=== PATIENT | male | born 1960 | race Caucasian/White ===

== ENCOUNTER 2017-07-20 17:46 | Inpatient (IN) | payer MEDICARE ==
[2017-07-20] MEDS ORDERED: HYDROCODONE-APA1 TAB PO (18:11)
[2017-07-20 18:53] LABS: BASOPHILS 0.6 % (0-2); EOSINOPHILS 6.1 % (0-7); HEMATOCRIT 38.5 % (42.0-54.0); HEMOGLOBIN 12.4 g/dL (13.5-17.5); IMMATURE GRANULOCYTES 0.4 % (0-5); LYMPHOCYTES 14.7 % (15-50); MCH 30.2 pg (26.0-34.0); MCHC 32.2 g/dL (31.0-37.0); MCV 93.7 fL (80.0-100.0); MEAN PLATELET VOLUME 11.6 fL (7.4-10.4); MONOCYTES 9.3 % (2-11); NEUTROPHILS 68.9 % (40-80); RBC 4.11 10x6/uL (4.20-6.10); RDW 17.7 % (11.5-14.5); WBC 5.1 10x3/uL (4.8-10.8)
[2017-07-20 18:55] LABS: PLATELET COUNT 119 10x3/uL (130-400)
[2017-07-20 19:05] LABS: INR 1.09 (0.85-1.17)
[2017-07-20 19:17] LABS: ANION GAP 14.1 mmol/L (8-16); CALCIUM 8.5 mg/dL (8.5-10.1); CARBON DIOXIDE 26.4 mmol/L (21.0-32.0); CREATININE - SERUM 5.2 mg/dL (0.6-1.3); POTASSIUM - SERUM 4.5 mmol/L (3.5-5.1)
--- NOTE | 2017-07-20 19:25 | NUR ---
SITTING ON SIDE OF BED TALKING ON PHONE. ALERT/ORIENTED X 4. DENIES PAIN OR ANY NEEDS.
[2017-07-20 20:48] VITALS: BP 144/73
--- NOTE | 2017-07-20 22:07 | NUR ---
PATIENT CAME TO NURSES'S STATION IN WHEELCHAIR REQUESTING PAIN MEDICATION. OBTAIN ORDER FROM [facility] TO GIVE HYDROCODONE 10/325 MG PO Q6H PRN FOR PAIN.
[2017-07-21] VITALS: BP 129/39
[2017-07-21 00:17] VITALS: BP 159/69; BMI 29.2
--- NOTE | 2017-07-21 07:15 | NUR ---
RECIEVED REPORT ON PATIENT, PATIENT IS ALERT AND ORIENTED AT THIS TIME. NAD NOTED AT THIS TIME. PATIENT DENIES ANY NEEDS OR PAIN AT THIS TIME. BED IS LOW AND LOCKED, CALL LIGHT IN REACH. WILL CONT TO MONITOR PATIENT. CPOC.
[2017-07-21 08:00] VITALS: BP 130/41
--- NOTE | 2017-07-21 08:00 | NUR ---
MORNING ASSESSMENT DONE. PATIENT DENIES ANY NEEDS. CPOC
--- NOTE | 2017-07-21 09:30 | NUR ---
PATIENT GONE TO DIALYSIS. CPOC
--- NOTE | 2017-07-21 14:32 | NUR ---
PATIENT BACK FROM DIAYLSI, PATIENT SITTING IN ELECTRIC WHEELCHAIR, C/O PAIN 05/02 IN BACK. NORCO GIVEN. DENIES ANY OTHER NEEDS. CPOC
[2017-07-21 16:23] VITALS: BP 120/27
--- NOTE | 2017-07-21 17:36 | NUR ---
PATIENT SITTING UP IN BED. DENIES ANY NEEDS AT THIS TIME. CPOC
--- NOTE | 2017-07-21 18:32 | NUR ---
WENT IN TO START IV ON PATIENT, AND PATIENT REFUSED STATED HE WOULD RATHER WAIT UNTIL LATER, OR IN THE MORNING BEFORE SURGERY. WILL PASS ON TO MECHANICAL OXIDIZER
--- NOTE | 2017-07-21 19:17 | NUR ---
PT IN BED. PROVIDED COLA PER REQUEST. DENIES FURTHER NEEDS. WILL CONTINUE TO MONITOR.
[2017-07-21 20:00] VITALS: BP 106/38
[2017-07-22] VITALS: BP 100/38
[2017-07-22 04:00] VITALS: BP 134/470
[2017-07-22 04:31] LABS: BASOPHILS 0.2 % (0-2); EOSINOPHILS 5.9 % (0-7); HEMATOCRIT 36.3 % (42.0-54.0); HEMOGLOBIN 11.5 g/dL (13.5-17.5); IMMATURE GRANULOCYTES 0.2 % (0-5); LYMPHOCYTES 26.5 % (15-50); MCH 29.8 pg (26.0-34.0); MCHC 31.7 g/dL (31.0-37.0); MEAN PLATELET VOLUME 11.7 fL (7.4-10.4); MONOCYTES 9.6 % (2-11); NEUTROPHILS 57.6 % (40-80); PLATELET COUNT 110 10x3/uL (130-400); RBC 3.86 10x6/uL (4.20-6.10); RDW 17.6 % (11.5-14.5); WBC 4.9 10x3/uL (4.8-10.8)
[2017-07-22 04:48] LABS: INR 1.09 (0.85-1.17); PROTIME 13.9 SECONDS (11.6-15.0)
[2017-07-22 04:55] LABS: CALCIUM 8.8 mg/dL (8.5-10.1); CARBON DIOXIDE 27.1 mmol/L (21.0-32.0); CREATININE - SERUM 4.8 mg/dL (0.6-1.3); PHOSPHOROUS 6.9 mg/dL (2.5-4.9); POTASSIUM - SERUM 4.1 mmol/L (3.5-5.1)
--- NOTE | 2017-07-22 07:30 | NUR ---
REPORT RECIVED. PT NOT IN ROOM. WILL ASSESS WHEN PT RETURNS TO ROOM.
[2017-07-22 08:22] VITALS: BP 127/34
--- NOTE | 2017-07-22 08:31 | NUR ---
20 G IV INSERTED INTO RIGHT AC X1 STICK. PT RESTING QUIETLY, RR EVEN AND UNLABORED.
--- NOTE | 2017-07-22 10:30 | NUR ---
SPOKE TO PT AND FAMILY REGARDING SURGERY AND CARE. FAMILY MEMBER APPEARS TO BE IRRIATED SAYING "WELL NO ONE HAS SPOKE TO US" AND "NO ONE HAS BEEN IN HERE." EXPLAINED TO FAMILY THAT I HAD BEEN IN THE ROOM SEVERAL TIMES PRIOR TO THEM ARRIVING. EXPLAINED A LITTLE BIT ABOUT PROCEDURE, WENT OVER CONSENTS WITH FAMLILY, EVEN THOUGH THEY HAD ALREADY BEEN SIGNED BY THE PATIENT. WILL CTM.
[2017-07-22 11:48] VITALS: BP 130/55
--- NOTE | 2017-07-22 13:00 | NUR ---
PRE-OP CALLED AND COMPLETED. PT DENIES QUESTIONS RELATED TO PROCEDURE. RR EVEN AND UNLABORED, TO BE TRANSFERRED TO OR.
--- NOTE | 2017-07-22 18:30 | NUR ---
PT RECIEVED TO ROOM FROM SURGERY. RR EVEN AND UNLABORED, PT ON 3L NC. DRESSING ON RIGHT UPPER ARM CDI. VSS. PTS HOB IS AT 20 DEGREES DUE TO HYPOTENSIVE EPISODES IN PACU. PT ON FREQUENT VS, WILL GIVE REPORT ON PT CONDITION FOR THE DAY.
[2017-07-22 18:32] VITALS: BP 129/42
[2017-07-22 19:00] VITALS: BP 112/22
--- NOTE | 2017-07-22 19:03 | NUR ---
SPOKE TO PTS REGARDING PT STATUS AFTER SURGERY. FAMILY SAID "THANK YOU SO MUCH FOR CALLING." VERBALIZED UNDERSTANDING REGARDING PT STATUS.
--- NOTE | 2017-07-22 19:27 | NUR ---
PT SITTING UP IN BED. PT IS SLIGHTLY LETHARGIC POST SURGERY. PROVIDED WATER PER REQUEST. DENIES FURTHER NEEDS AT THIS TIME. WILL CONTINUE TO MONITOR.
[2017-07-23] VITALS: BP 121/42
[2017-07-23 04:00] VITALS: BP 106/27
[2017-07-23 04:41] LABS: BASOPHILS 0.3 % (0-2); EOSINOPHILS 3.1 % (0-7); HEMATOCRIT 35.9 % (42.0-54.0); HEMOGLOBIN 11.2 g/dL (13.5-17.5); IMMATURE GRANULOCYTES 0.3 % (0-5); LYMPHOCYTES 14.1 % (15-50); MCH 29.4 pg (26.0-34.0); MCHC 31.2 g/dL (31.0-37.0); MCV 94.2 fL (80.0-100.0); MEAN PLATELET VOLUME 12.5 fL (7.4-10.4); NEUTROPHILS 73.2 % (40-80); PLATELET COUNT 107 10x3/uL (130-400); RBC 3.81 10x6/uL (4.20-6.10); RDW 17.4 % (11.5-14.5); WBC 5.9 10x3/uL (4.8-10.8)
[2017-07-23 05:09] LABS: ANION GAP 19.6 mmol/L (8-16); CALCIUM 8.1 mg/dL (8.5-10.1); CARBON DIOXIDE 22.7 mmol/L (21.0-32.0); CREATININE - SERUM 5.7 mg/dL (0.6-1.3); PHOSPHOROUS 8.5 mg/dL (2.5-4.9); POTASSIUM - SERUM 4.3 mmol/L (3.5-5.1)
--- NOTE | 2017-07-23 07:30 | NUR ---
REP0RT RECIEVED. RR EVEN AND UNLABORED, PT ON PHONE. PLACED NAME ON WHITE BOARD. WILL ASSESS AFTER PT IS OFF OF PHONE. WILL CTM.
[2017-07-23 08:00] VITALS: BP 136/40
--- NOTE | 2017-07-23 13:58 | NUR ---
PT BACK FROM DIALYSIS WITH DIALYSIS NURSE. RR EVEN AND UNLABORED, PT DENIES NEEDS. DISCUSSED D/C AND PT SAID HIS BROTHER CAN COME PICK HIM UP TODAY. WILL COMPLETE D/C AND CTM.
--- NOTE | 2017-07-23 15:00 | NUR ---
PT DISCARHGED. PT ALREADY REMOVED IV FROM ARM. PT VERY INPATIENT WAITING FOR D/C PAPER WORK. WENT OVER PAPERWORK WITH PT AND FAMILY MEMBER. PT WILL BE LEAVING WITH BROTHER AND GOING HOME IN HIS PERSONAL VEHICHLE. PT DENIES QUESTIOSN REGARDING DISCHARGE. PT LEFT VIA WHEELCHAIR.
--- NOTE | 2017-07-28 10:26 | OP ---
PATIENT NAME: UZIEL CORRALES MEDICAL RECORD: [id number] :60 LOCATION:D.M2 D.2105 ADMISSION DATE:07/20/17 SURGEON: SCOT ZAVALA MD DATE OF OPERATION: 07/22/2017 PREOPERATIVE DIAGNOSIS: Leaking or perforated ulcerated arteriovenous fistula, left arm. ADDITIONAL DIAGNOSES: End-stage renal disease and dependence on hemodialysis, insulin-dependent diabetes and peripheral atherosclerotic arterial disease. OPERATION PERFORMED: Ligation of left arm arteriovenous fistula and the implantation of left brachial artery to axillary vein Acuseal PTFE AV graft. SURGEON: Scot Zavala MD ANESTHESIA: Regional block plus general anesthetic with LMA per SPEEDBOAT OPERATOR. PREOPERATIVE NOTE: Mr. Corrales is a 56-year-old diabetic patient from [place], patient of Dr. Cox. He has been dialyzing quite successfully with the left arm brachial artery to translocated basilic vein AV fistula although he has had interventions in the past. He presented earlier this week with a scab over an aneurysmal site in his fistula and a history of a sentinel bleeding or prolonged bleeding following decannulation from that site. This was apparent immediately that was impending rupture. I did do an angiogram on him last Tuesday at [facility] and did not find any venous outflow obstructions, although he does have a somewhat oversized and severely fractured stent in the upper basilic vein. There was no pseudoaneurysm or evidence of active bleeding. There was irregularity of the arterial or Juxta-anastomotic segment. He was admitted to the hospital, but due to scheduling, he was not able to go to the operating room for surgery on the , but is brought to the operating room today on the for surgery to see if we can perhaps salvage this fistula or replace it. DESCRIPTION OF PROCEDURE: Under anesthesia in supine position, the patient was prepped and draped in a sterile manner. The area of scab had increased in size and it was very apparent that this was an area of full thickness necrosis and I decided at that point that we would bypass it and ligate it. I made a vertical incision over the arterial limb of the fistula just above the antecubital space and exposed the brachial artery anastomosis. During this dissection, I just inadvertently brushed over the fistula and not the scab loose uncovering a full thickness defect about 1/8th of an inch or slightly larger in diameter which bled quite profusely for a very brief period of time until digital pressure was applied. I subsequently oversewed the leak with 3-0 Vicryl. I chose a 6-mm Acuseal graft. I used a partially occluding clamp to occlude the brachial artery just below the anastomosis. I ligated the fistula proximally with a 0 Vicryl and transected it. It was trimmed back close to the anastomosis where there was a satisfactory lumen and it was spatulated and anastomosed end-to-end to the end of the 6 mm diameter spatulated Acuseal graft. The graft was then placed in a subcutaneous tunnel. The graft and artery were flushed with heparinized saline. Vertically oriented incision was then made just distal to the axilla, and the basilic vein with the fractured stent within it and the axillary vein were exposed. The vein proximal to the area of stenting was very suitable for anastomosis. The vessel was initially controlled with Silastic loops and then as needed with vascular clamps. The Acuseal graft was then OPERATIVE REPORT [id number] UZIEL CORRALES placed in a subcutaneous tunnel as close as possible to the overlying skin to facilitate access. It was flushed repeatedly with heparinized saline and the patient was given 3000 units of heparin systemically. The graft was shortened, beveled, and anastomosed end-to-side to the axillary vein with running 6-0 Prolene. With completion of the anastomosis and release of the occluding clamps, excellent flow was established. The wounds were irrigated with Ancef/gentamicin solution, infiltrated with 0.25% Marcaine with epinephrine. The patient's heparin was partially reversed with 10 mg of protamine given intravenously by the physician/internist and the wounds were closed without the use of a drain approximating subcutaneous tissues with interrupted inverted 3-0 Vicryl and skin with running intracuticular 4-0 Monocryl. The ruptured aneurysmal area was again reexamined. The sutures were removed and I quickly found that there was still venous inflow to this area, which had not been ligated. This was easily controlled with direct pressure. The perforation itself was then excised and the underlying aneurysmal wall which was fused to the overlying skin was sutured closed with a running 4-0 Prolene suture. All the wounds were sealed with Dermabond glue and dressed with Maxorb Ag, Tegaderm, and Cavilon skin prep and some additional gauze padding and Coban elastic wrap was applied to hold pressure over the aneurysmal area. The graft was functioning well by Doppler with a palpable pulse and thrill and there was excellent pulsatile Doppler polyphasic flow in the distal radial and ulnar arteries at the wrist. Blood loss during the operation was about 50 cc, none was replaced intraoperatively. All sponges, instruments and needles were accounted for. No drain was used and no surgical specimen was submitted for histopathology. PLAN: The patient will remain in the hospital overnight tonight. Hopefully, he will have dialysis here in the hospital via his new Acuseal graft tomorrow and perhaps on Tuesday. He can be discharged to go home to [place] whenever we feel that the graft is functioning and likely to provide a reliable dialysis access. I have not inserted a dialysis catheter. I believe it is critically important that we adhere to Acuseal protocol with the nurses using sterile gloves when they access and decannulate the graft, only 17-gauge needle should be used and flow should not exceed 450 cc per minute for the first 2 weeks. I would consider that 2 weeks after discharge from the hospital. I would like to have him back in my office in about 2 weeks for wound check and suture removal, etc., and I believe that he should have a followup angiogram at [facility] done in 6-8 weeks. I am somewhat concerned about the arterial anastomosis and JA segment which was rather tortuous and of course of the venous anastomosis is a potential site for neointimal hyperplasia, etc. TRANSINT:[id number] Voice Confirmation ID: [id number] DOCUMENT ID: [id number] SCOT ZAVALA MD at 1026 CC: STEVE COX MD [id number] DICTATION DATE: 07/22/171801 PLEXIGLAS FORMER: 07/22/17 7363 DIS IN 07/23/17 [facility] [address] [facility] [place] [address]
== END 2017-07-23 15:03 | disposition home or self-care (01) | DRG 252 ==
LOC: D.M2 17:46
PROVIDERS: Surgery; ADMIT Internal Medicine Nephrology
PROC: 5A1D60Z (ICD-10-PCS; principal; 2017-07-21)
PROC: 03LY0ZZ Occlusion of Upper Artery, Open Approach (ICD-10-PCS; 2017-07-22)
PROC: 5A09457 Assistance with Respiratory Ventilation, 24-96 Consecutive Hours, Continuous Positive Airway Pressure (ICD-10-PCS; 2017-07-22 11:30)
DX: T82.898A Other specified complication of vascular prosthetic devices, implants and grafts, initial encounter (principal); N18.6 End stage renal disease; I12.0 Hypertensive chronic kidney disease with stage 5 chronic kidney disease or end stage renal disease; J81.1 Chronic pulmonary edema; Y83.8 Other surgical procedures as the cause of abnormal reaction of the patient, or of later complication, without mention of misadventure at the time of the procedure; E11.22 Type 2 diabetes mellitus with diabetic chronic kidney disease; Z99.2 Dependence on renal dialysis; E11.40 Type 2 diabetes mellitus with diabetic neuropathy, unspecified; I25.10 Atherosclerotic heart disease of native coronary artery without angina pectoris; I73.9 Peripheral vascular disease, unspecified; E83.39 Other disorders of phosphorus metabolism; D63.1 Anemia in chronic kidney disease; Z72.0 Tobacco use; Z95.5 Presence of coronary angioplasty implant and graft

== ENCOUNTER 2018-05-29 21:40 | Inpatient (IN) | payer MEDICARE ==
[~2018-05-29] VITALS: Ht 177.8 cm; Wt 103.2 kg
--- NOTE | ~2018-05-29 | OP ---
PATIENT NAME: UZIEL CORRALES MEDICAL RECORD: [id number] :60 LOCATION:D.M2 D.2112 ADMISSION DATE:05/29/18 SURGEON: SCOT ZAVALA MD DATE OF OPERATION: 06/01/2018 SURGEON: Scot Zavala MD REFERRING PHYSICIAN: Dr. Gomez. ANESTHESIA: General by LMA converted to GETA by JUSTIN and Dr. Valente. PROCEDURE: Excision of infected AV graft including cuff of axillary vein and arterial anastomosis with the brachial artery repair with an end-to-end reversed autogenous left greater saphenous vein interposition graft and application of a wound VAC. PREOPERATIVE DIAGNOSES: Infected thrombosed AV graft, ESRD dependence on hemodialysis, sepsis severe, atherosclerotic peripheral arterial disease, and possible Buerger's disease with tobacco addiction. PREOPERATIVE NOTE: Mr. 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 He is on chronic hemodialysis and had been dialyzing with a left arm AV graft, which is now thrombosed and appears infected. Under general anesthesia, the patient was positioned on the operating table in supine position, prepped and draped in sterile manner. An incision was made over the upper arm to expose the anastomosis of the graft to the brachial artery and to the axillary vein. The axillary vein to graft anastomosis was excised and the vein ligated with Vicryl. The brachial artery was difficult to free from the surrounding scar and I ended up removing about an inch and a half of artery along with the arterial anastomosis to the infected graft. I then took vein from the left thigh and reversed it and used it as an interposition graft, sutured end-to-end to the brachial artery. This was done with 6-0 Prolene after flushing the vessels with heparinized saline. The thigh was closed with Vicryl suture and skin lona. The flow in the brachial artery after this reconstruction was satisfactory by Doppler in the upper arm and at the level of the antecubital space and in the radial and ulnar arteries at the wrist. The rest of the infected graft was removed through a generous incision. Hemostasis was obtained with electrocautery. Wound VAC dressings were applied to all, but the incision over the vascular structures, which was closed with interrupted Vicryl. The incision was dressed with Maxorb Ag, Tegaderm, and Cavilon skin prep. The patient will need to continue on dialysis with a catheter. He presently has a tunneled dialysis catheter in the left groin. This will need to be preferably changed out before he is discharged. Blood loss was estimated at 200 cc. None was replaced. No drain was used. The patient was hypotensive during the operation requiring pressors and so will be managed postop in the ICU. OPERATIVE REPORT [id number] UZIEL CORRALES TRANSINT:[id number] Voice Confirmation ID: [id number] DOCUMENT ID: [id number] SCOT ZAVALA MD at 1054 CC: [id number] DICTATION DATE: 06/22/18 1418 PRINTED CIRCUIT BOARD DRAFTER: 06/22/18 1433 ADM IN [facility] [address] [place] [address]
--- NOTE | ~2018-05-29 | PN ---
PATIENT:UZIEL CHOW MEDICAL RECORD: [id number] LOCATION:D.M2 D.211 ADMISSION DATE: 05/29/18 PROGRESS NOTE DATE OF SERVICE: 06/15/2018 SUBJECTIVE: This is a 57-year-old man who has had a history of end-stage renal disease, has been on dialysis. The patient had fever and chills and was noted to have infected dialysis port. There was also some ischemia on the right second finger. The patient was admitted to the hospital, had surgery with removal of the port as well as debridement and VAC placement. The patient has done well. He was also noted to have basilar pneumonia. The patient's cultures showed MRSA and has been treated with vancomycin. The patient did well, was transferred to the medical floor. He has had dialysis and last 2 days had been vomiting. He complains of abdominal pain. PHYSICAL EXAMINATION: GENERAL: Reveals a middle-aged man, who appears to be acutely ill. VITAL SIGNS: Temperature 97.9, heart rate of 93, respiratory rate of 18, blood pressure 132/58. HEENT: The patient is normocephalic. Pupils are equal and reactive. NECK: Supple. There is no adenopathy. Trachea is midline. There is no thyromegaly. CHEST: Clear, symmetric. No wheezes or crackles. HEART: Shows no jugular venous distention. No murmur or gallop. ABDOMEN: Benign. Abdominal exam shows some mid abdomen tenderness with no rebound or guarding. EXTREMITIES: No clubbing, cyanosis or edema. LABORATORY DATA: White count of 4.5, hemoglobin 8.8. Platelet count is 104,000. Chemistries remarkable for sodium 128, potassium 3.5, creatinine is 3.5. BUN is 26. ASSESSMENT: 1. Basilar pneumonia, improving on antibiotics. 2. Infected dialysis port. This has been removed with VAC. 3. Abdominal pain, nausea and vomiting, this is unclear. The patient has tenderness, but no distention. We will order a KUB initially and PCP can subsequently take care of the problem there is. TRANSINT:[id number] Voice Confirmation ID: [id number] DOCUMENT ID: [id number] JONY SAHU at 1126 CC: [id number] DICTATION DATE: 06/15/18 3331 PRINTED CIRCUIT BOARDS INSPECTOR: 06/16/18 0158 ADM IN [facility] [address] [place] [id number]
--- NOTE | ~2018-05-29 | PN ---
PATIENT:UZIEL CHOW MEDICAL RECORD: [id number] LOCATION:D.M2 D.211 ADMISSION DATE: 05/29/18 PROGRESS NOTE DATE OF SERVICE: 06/18/2018 SUBJECTIVE: This 57-year-old man who has had a history of end-stage renal disease, on dialysis. The patient was admitted with fever and chills with infected dialysis port. The patient was taken to surgery. Dialysis port was taken out, washed and vacuum was started. The patient was also noted to have a right second finger ischemia. The patient was treated for MRSA. The patient had amputation of the right second finger yesterday by orthopedic surgery. The patient has had pneumonia, which has improved. Continues to cough, thick secretions. Sometimes secretions are choking. The patient denies any chest pain. He also uses BiPAP at night. There is no fever or chills. PHYSICAL EXAMINATION: GENERAL: Reveals a middle-aged gentleman, who is in no acute distress. VITAL SIGNS: Temperature 98.1, heart rate of 88, respiratory rate of 18, blood pressure 126/36, saturation is 99%. SHEENT: Unremarkable. NECK: Supple. No adenopathy. Trachea is midline. There is no thyromegaly. CHEST: Shows coarse crackles on coughing. There is no chest wall tenderness. CARDIAC: Shows no jugular venous distention, murmur, or gallops. ABDOMEN: Benign without any tenderness, masses, or distention. EXTREMITIES: Shows no clubbing, cyanosis, or edema. There is amputation of the second right finger with wound VAC in place. LABORATORY DATA: Lab exam showed white count of 7.6, hemoglobin 8.8, platelet count is 127,000. Chemistries remarkable for potassium 3.7, sodium 131, creatinine is 3.1, BUN is 21. ASSESSMENT: 1. Acute exacerbation of chronic obstructive pulmonary disease. The patient will need continuing bronchodilators. The patient will also need mucolytics since he appears to have retained secretions. 2. Pneumonia. Continue antibiotics. 3. End-stage renal disease. The patient is having hemodialysis. PLAN: 1. Mucomyst and Mucinex. 2. DuoNeb every 6 hours. 3. BiPAP at night and as needed during the daytime. 4. DVT prophylaxis. TRANSINT:[id number] Voice Confirmation ID: [id number] DOCUMENT ID: [id number] PROGRESS NOTE [id number] UZIEL CHOW AUGUSTINE K at 0808 CC: [id number] DICTATION DATE: 06/18/181736 ENTRY TECH: 06/19/18 0002 ADM IN [facility] [address] [place] [place] [id number]
--- NOTE | ~2018-05-29 | OP ---
PATIENT NAME: UZIEL CORRALES MEDICAL RECORD: [id number] :60 LOCATION:D. D.2112 ADMISSION DATE:05/29/18 SURGEON: SCOT ZAVALA MD DATE OF OPERATION: 06/22/2018 PREOPERATIVE DIAGNOSES: End-stage renal disease and dependence on hemodialysis with recent loss of dialysis access with thrombosis and infection of a left arm PTFE arteriovenous graft, now status post excision of that. POSTOPERATIVE DIAGNOSES: End-stage renal disease and dependence on hemodialysis with recent loss of dialysis access with thrombosis and infection of a left arm PTFE arteriovenous graft, now status post excision of that; superior vena cava syndrome. OPERATION PERFORMED: Ultrasound-guided access to the right internal jugular vein and performance of an superior vena cavogram with attempted crossing of a superior vena cava stenosis or stricture, which was unsuccessful, followed then by removal and replacement of the tunneled dialysis catheter via the left common femoral vein, inserting a 42 cm HemoSplit. ANESTHESIA: Local MAC. SURGEON: Scot Zavala MD REFERRING PHYSICIAN: Dr. Guillermo and Dr. Fountain. PREOPERATIVE NOTE: Mr. Corrales is a 57-year-old, vasculopath, diabetic, heavy smoking, end-stage renal patient who has been dialyzing with a left arm graft, which recently became infected and thrombosed. He had a femoral tunneled dialysis catheter inserted on the left elsewhere and has been admitted to this hospital for further treatment. Sometime ago, I took him to the operating room and removed his infected graft and repaired his brachial artery with a saphenous vein graft. Since that time, he has been dialyzing with that groin tunneled catheter and we would like to place a fresh new catheter before thinking of discharging him. I am afraid that he will remain catheter dependent now for some time as he is really too ill to consider for another access operation. DESCRIPTION OF PROCEDURE: With patient under sedation and monitored per PEST CONTROLLER, he was prepped and draped in sterile manner. The right internal jugular vein was scanned with ultrasound and noted to be patent at the level above that of the clavicle as was still surprisingly the left internal jugular vein. I accessed the right internal jugular under local anesthesia, made a small incision and under ultrasound passed a micro needle and catheter or a guidewire into the internal jugular. The guidewire would not pass into the superior vena cava. I then performed a superior vena cavogram from that puncture site and demonstrated an occluded superior vena cava with collateral circulation. It appears that the left brachiocephalic vein is open and the problem is in the superior vena cava. I was able to advance a Glidewire and glide catheter through what I thought was the stenosis in the superior vena cava into the right heart, but with injection of contrast, the catheter was not in a cardiac chamber. There was pooling and extravasation of contrast, really could not tell what structure or where this was and I removed the catheter and guidewire. The cervical incision required 2 Vicryl sutures for hemostasis due to increased venous pressure and bleeding. OPERATIVE REPORT [id number] UZIEL CORRALES I then went to the groin, and under fluoroscopy over guidewire, I removed the old catheter and inserted a new 42 cm HemoSplit through a new entry site and subcutaneous tunnel, but using the same groin crease incision, which had been used with the original catheter insertion. The tissue here is so edematous that really will not close properly and I am concerned that there will be tissue necrosis with exposure and infection of his catheter if it is in place for really very long. I passed the new catheter into the inferior vena cava over a guidewire and this did require injection of contrast for an inferior venacavogram to get the catheter passed an area of irregularity or stenosis within the common iliac vein. Eventually, the catheter was placed in the upper inferior vena cava and both lumens were aspirated and returned blood easily. They were then flushed with saline and heparin-locked, clamped and capped. The catheter was sewn to the skin near the entry site with 2-0 Prolene and a few interrupted inverted subcuticular 3-0 Vicryl sutures were placed in the groin incision, which was subsequently glued and then dressed with Maxorb Ag, Tegaderm, and Cavilon skin prep. A standard CVL dressing was applied to the catheter at its entry site and the patient then in stable condition was returned to his room on the floor bypassing the recovery room. Blood loss was about 10 to 20 cc. None was replaced. Sponges, instruments, and needles were accounted for. No drain was used. No surgical specimen was submitted. PLAN: We will consult interventional radiology to see if they may be able to reopen the superior vena cava sufficiently to allow insertion of a dialysis catheter from above, which would be far preferable I think than continuing to rely on the femoral access. TRANSINT:[id number] Voice Confirmation ID: [id number] DOCUMENT ID: [id number] SCOT ZAVALA MD at 1054 CC: KATELYN FOUNTAIN MD and VICKIE GUILLERMO MD [id number] DICTATION DATE: 06/22/18 1623 CHEMISTRY PHYSICS TEACHER: 06/22/18 1812 ADM IN [facility] [address] [place] [address]
--- NOTE | ~2018-05-29 | EC ---
PATIENT:UZIEL CHOW DATE OF SERVICE: 05/29/18 SEX: M MEDICAL RECORD: [id number] DATE OF : 60 LOCATION:[facility] D230 AGE OF PATIENT: 57 ADMISSION DATE: 05/29/18 REFERRING PHYSICIAN: INTERPRETING PHYSICIAN: ROCHELLE TORRES MD ECHOCARDIOGRAM REPORT ECHO CHARGES 4 ECHO COMPLETE Date: 06/06 CLINICAL DIAGNOSIS: ASSESS ENDOCARDITIS ECHOCARDIOGRAPHIC MEASUREMENTS (adult normal given) AC root (d.<3.7cm) 3.3 cm LV Septum d (<1.2 cm> 1.7 cm Valve Excursion 1.0 cm LV Septum (systole) 1.8 cm Left Atria (s.<4.0cm> 3.8 cm LVPW d(<1.2cm) 1.2 cm RV (d.<2.3cm) 3.8 cm LVPW (sytole) 1.7 cm LV diastole(<5.6CM) 5.4 cm MV E-F(>70mm/sec) cm LV systole 4.8 cm LVOT Diameter 1.8 cm MV exc.(>10mm) cm Est.ejection fraction (50-75%) % DOPPLER: LVIT cm/sec A 93 cm/sec E 99 cm/sec LA cm/sec RVSP 18.9 mmHg LVOT 98 cm/sec AOP1/2T m/s Asc. Ao 169 cm/sec RVOT 55 cm/sec RA cm/sec PA 55 cm/sec AV Gradient Peak 11.5 mmHg AV Mean 6.6 mmHg AV Area 2.0 cm MV Gradient Peak 3.8 mmHg MV Mean 2.5 mmHg MV Area cm COMMENTS: Audiometrist: Miquel KONG Peer Educator: Arnold Arriaga TAPE# PACS Pericardial Effusion N DATE OF SERVICE: 06/06/2018 FINDINGS: 1. Left ventricular chamber size is within normal limits. Left ventricular systolic function is normal. Overall ejection fraction is estimated at 50%. 2. Left atrium is within normal limits. Right atrium and right ventricle chamber sizes are mildly dilated. 3. Valvular structures have normal structure and motion. No evidence of vegetative endocarditis. 4. Doppler interrogation reveals mild mitral regurgitation and mild tricuspid ECHOCARDIOGRAM REPORT [id number] UZIEL CHOW regurgitation. No other valvular insufficiency or stenosis. Pulmonary systolic pressure is estimated at 19 mmHg. 5. No evidence of pericardial effusion or left ventricular thrombus. OVERALL IMPRESSION: No evidence of vegetative endocarditis. TRANSINT:[id number] Voice Confirmation ID: [id number] DOCUMENT ID: [id number] ROCHELLE TORRES MD at 1752 CC: [id number] DICTATION DATE: 06/06/18 1154 RESEARCH LABORATORY TECHNICIAN: 06/06/18 1210 ADM IN [id number] [place] [address]
--- NOTE | ~2018-05-29 | OP ---
PATIENT NAME: UZIEL CORRALES MEDICAL RECORD: [id number] :60 LOCATION:D. D.2 ADMISSION DATE:05/29/18 SURGEON: STEVE DIAZ, DATE OF OPERATION: 06/16/2018 PROCEDURES PERFORMED: Right hand third ray resection with a second metacarpal excision as well. 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 INDICATIONS: Mr. Corrales is a 57-year-old male who had his right index finger removed a couple of weeks ago, up to a month ago, I believe. He was transferred to our facility following that procedure for an infected graft of his fistula graft for dialysis and I was consulted. His middle finger had become necrotic at that point as well as the area over the dorsum of his hand where his index finger had previously been at the surgical site and had also turned necrotic. We watched this for a few weeks and once we got to a point where it was not progressing further decided to do a ray resection of the third ray and also the second metacarpal bone. The patient was informed of the risks and benefits of the procedure and consented to the procedure. We had informed he could need a further surgery including more amputations due to the fact that he had had previous amputations; he had bilateral below-knee amputations and previous amputations of his small finger as well at the PIP joint. He is aware of those risks and consented to the procedure. DESCRIPTION OF PROCEDURE: The patient received a block by anesthesia in the preoperative area and taken to operative suite. The block did not seem to be fully taken at that time. Once we got to the operative suite today, I did a wrist block with 30 cc of 0.25% Marcaine without epinephrine. Then, the right upper extremity was prepped and draped in sterile fashion. A timeout was performed. Everyone was in agreement with the correct side, site, patient, and procedure. Then, the incision was marked out removing the third ray and along the dorsal and palmar aspect of the area of necrosis from the previous surgery. This was excised and then the third ray was removed as well as what was left of the second metacarpal from previous surgery. Then, the wound was thoroughly irrigated and closed with 2-0 Prolene using a modified Donati stitch. The wound was closed and then a Prevena wound VAC was placed on the incision site. The patient was given TIVA for anesthesia and tolerated the procedure well. BLOOD LOSS: Approximately 15 mL. COMPLICATIONS: None. TRANSINT:[id number] Voice Confirmation ID: [id number] DOCUMENT ID: [id number] OPERATIVE REPORT [id number] UZIEL CORRALES,STEVE Singleton DO at 0827 CC: [id number] DICTATION DATE: 06/16/181946 CHAIR MAKER: 06/17/18 0310 ADM IN [facility] [address] [id number]
--- NOTE | ~2018-05-29 | PN ---
PATIENT:UZIEL CHOW MEDICAL RECORD: [id number] LOCATION:D. D.211 ADMISSION DATE: 05/29/18 PROGRESS NOTE DATE OF SERVICE: 06/14/2018 SUBJECTIVE: There is a 57-year-old man who has had history of end-stage renal disease, on hemodialysis. The patient was admitted for infected dialysis port. This was removed. Wound VAC with suction was replaced. The patient also noted onset of right second finger ischemia, appeared to be black. The patient has severe pain in the finger. He has been unable to eat. On admission, he had hypoxemic respiratory failure, bilateral pneumonia, bilateral pleural effusion, and edema. The patient was seen on dialysis and had one dialysis today and was very very exhausted with shortness of breath. She will be put on BiPAP machine. There is no coughing. There is no chest pain. There is no fever. PHYSICAL EXAMINATION: GENERAL: Reveals a middle-aged man, who is in no acute distress. VITAL SIGNS: Temperature 97.3, heart rate of 88, respiratory rate of 18, blood pressure of 128/41, saturation is 90%. SHEENT: Unremarkable. NECK: Supple. There is no adenopathy. Trachea is midline. There is no thyromegaly. There is no stridor. CHEST: Shows bilateral crackles with some wheezes. There is no accessory muscle use. There is no chest wall tenderness. CARDIAC: Shows no jugular venous distention, murmur, or gallop. ABDOMEN: Benign. EXTREMITIES: No clubbing or cyanosis. There is right second finger tip cyanosis that appears to be ischemic, black. LABORATORY DATA: Lab exam showed white count of 6.5, hemoglobin 9.3, platelet count is 119,000. Chemistry is remarkable for creatinine of 0.4, BUN 37, chloride is 86, and sodium is 121. DIAGNOSTIC DATA: Chest x-ray showed bilateral pleural effusions, pulmonary edema, and basilar reticular infiltrates. ASSESSMENT: 1. End-stage renal disease, on hemodialysis. 2. Bibasilar pneumonia. 3. Bilateral pleural effusion. 4. Loculated right pneumothorax. 5. Pulmonary edema. 6. Acute respiratory failure with hypercapnia and hypoxia. The patient is on bronchodilators as well as antibiotics. PLAN: 1. Continue bronchodilators and antibiotics. 2. Continue dialysis. 3. Assess heart function with echo and BNP. 4. DVT prophylaxis. TRANSINT:[id number] Voice Confirmation ID: [id number] DOCUMENT ID: [id number] PROGRESS NOTE [id number] UZIEL CHOW AUGUSTINE K at 1241 CC: [id number] DICTATION DATE: 06/14/18 170 HAND ROUTER OPERATOR: 06/14/18 1905 ADM IN [address] [place] [address]
--- NOTE | ~2018-05-29 | HEMODYNAMI ---
PATIENT:UZIEL CHOW MEDICAL RECORD: [id number] : 60 LOCATION:[place] [address] ADMISSION DATE: 05/29/18 Generatedon:06/27/201810:05 Patient name: UZIEL CHOW Patient #: [id number] SSN: : 1960 Date of study: 06/27/2018 Page: Of Hemodynamic Procedure Report Patient Data Patient Demographics Procedure consent was obtained First Name: UZIEL Gender: Male Last Name: CLAUDINE : 1960 Middle Initial: BRITTNEY Age: 57 year(s) Patient #: [id number] Race: Unknown Additional ID: [id number] Contact details [address]: [address] [place] [address] State: [place] City: [place] Zip code: [address] Past Medical History Allergies Allergen Reaction Date Comments Reported Penicillins 06/27/2018 Admission Admission Data Admission Date: 05/29/2018 Admission Time: 21:51 Room #: [facility] Weight (lbs.): 185 Weight (kg.): 83.91 Procedure Procedure Types Cath Procedure Peripheral Cath Diagnostic Procedure Miscellaneous Procedure Description Procedure Date Procedure Date: 06/27/2018 Procedure Start Time: 8:48 Procedure Staff Name Function Alfredo Obregon MD Performing Physician Josey Humphries RT Builder'S Labourer Flavia Manjarrez RN Nurse Frank Chacon RT Scrub Procedure Data Cath Procedure Fluoroscopy Diagnostic fluoroscopy Total fluoroscopy Time: time: 13.4 min 13.4 min Diagnostic fluoroscopy Total fluoroscopy dose: 931 dose: 931 mGy mGy Contrast Material Contrast Material Type Amount (ml) Isovue 300 25 Entry Location Entry Primary Successful Side Size Upsize Upsize Entry Closure Succes sful Closure Location (Fr) 1 (Fr) 2 (Fr) Remarks Device Remarks Jugular Right 6 Fr vein Short Diagnostic catheters Device Type Used For End Catheter Placement Merit Impress KA 2 5Fr 40CM catheter ([id number]) Procedure Medications Medication Administration Route Dosage Versed I.V. 1 mg Fentanyl I.V. 50 mcg Vancomycin I.V.P.B 500 mg Lidocaine 1% added to field 20 Heparin Flush Bag added to field 2 bags (1000units/500ml NS) Versed I.V. 1 mg Fentanyl I.V. 50 mcg Hemodynamics Rest Heart Rate: 77 (bpm) Snapshots Pre Cath Intra NCS Post Cath Vital Signs Time Heart Resp SPO2 etCO2 NIBP (mmHg) Rhythm Pain Sedation Rate (ipm) (%) (mmHg) Status Level (bpm) 8:31:08 77 16 98 39.9 133/51(96) NSR 0 (11) 10(A) , No pain 8:35:39 79 15 99 37.6 126/32(40) NSR 0 (11) 10(A) , No pain 8:40:01 77 14 99 28.6 128/56(77) NSR 0 (11) 10(A) , No pain 8:44:29 75 17 100 28.6 125/47(83) NSR 0 (11) 10(A) , No pain 8:49:28 76 15 100 30.9 Measuring NSR 0 (11) 10(A) , No pain 8:50:03 75 13 100 9.8 132/50(101) NSR 0 (11) 10(A) , No pain 8:55:02 74 13 97 0 Measuring NSR 0 (11) 10(A) , No pain 8:56:26 75 10 96 0 Time NSR 0 (11) 10(A) Exceeded , No pain 8:57:52 76 12 97 0 120/46(78) NSR 0 (11) 10(A) , No pain 9:02:51 84 36.2 Measuring NSR 0 (11) 10(A) , No pain 9:03:26 77 15 98 33.1 130/60(85) NSR 0 (11) 10(A) , No pain 9:07:50 78 13 100 21.1 126/61(86) NSR 0 (11) 10(A) , No pain 9:12:49 75 14 100 42.2 126/67(82) NSR 0 (11) 10(A) , No pain 9:14:11 75 12 98 23.3 Time NSR 0 (11) 10(A) Exceeded , No pain 9:18:43 69 12 98 42.2 Time NSR 0 (11) 10(A) Exceeded , No pain 9:20:57 67 13 100 37.7 120/43(60) NSR 0 (11) 10(A) , No pain 9:25:55 69 13 100 24.8 122/45(62) NSR 0 (11) 10(A) , No pain 9:27:19 69 15 100 17.3 Time NSR 0 (11) 10(A) Exceeded , No pain 9:28:31 70 12 97 42.9 101/68(89) NSR 0 (11) 10(A) , No pain 9:33:30 73 9 100 43.7 110/70(80) NSR 0 (11) 10(A) , No pain 9:34:54 74 10 100 41.4 Time NSR 0 (11) 10(A) Exceeded , No pain 9:36:20 73 10 100 37.6 119/44(93) NSR 0 (11) 10(A) , No pain 9:41:19 76 11 99 41.4 Measuring NSR 0 (11) 10(A) , No pain 9:41:42 77 12 100 44.5 114/58(86) NSR 0 (11) 10(A) , No pain 9:46:41 78 11 100 39.9 Measuring NSR 0 (11) 10(A) , No pain 9:48:05 79 10 100 40.6 Time NSR 0 (11) 10(A) Exceeded , No pain 9:53:04 79 10 100 40.7 Measuring NSR 0 (11) 10(A) , No pain 9:54:26 80 15 100 27.1 Time NSR 0 (11) 10(A) Exceeded , No pain 9:57:12 80 14 100 33.1 130/40(71) NSR 0 (11) 10(A) , No pain 10:02:11 80 14 99 0 Measuring NSR 0 (11) 10(A) , No pain 10:02:43 99 18.8 111/95(105) NSR 0 (11) 10(A) , No pain Medications Time Medication Route Dose Verified Delivered Reason Notes Effec tiveness by by 8:50:09 Versed I.V. 1 mg Alfredo Manjarrez RN sedation 8:50:22 Fentanyl I.V. 50 Alfredo Alejandro for mcg Mindi Manjarrez RN sedation 8:56:17 Vancomycin I.V.P.B 500mg Alfredo Alejandro used for Mindi Manjarrez RN procedure 8:56:31 Lidocaine 1% added 20ml Alfredo Alfredo to vial Mindi carty MD, MD 8:56:43 Heparin Flush added 2 Alfredo Fuentes used for Bag to bags Mindi Obregon procedure (1000units/500ml field MD KLINE NS) 9:05:31 Versed I.V. 1 mg Alfredo Alejandro for Mindi Manjarrez RN sedation 9:05:39 Fentanyl I.V. 50 Alfredo Alejandro for [facility] Mindi Manjarrez RN sedation Procedure Log Time Note 8::50 Patient Weight : 185 lbs 8::54 Time tracking: Regular hours (M-F 7:00 - 5:00) 8:29:15 Plan of Care:Hemodynamics will remain stable., Cardiac rhythm will remain stable., Comfort level will be maintained., Respiratory function will remain adequate., Patient/ family verbilizes understanding of procedure., Procedure tolerated without complication., Recovers from procedure without complications.. 8:29:30 Patient received from [employer] II to IR Alert and oriented. Tansferred to table in Supine position. 8:29:44 Signed procedure consent form obtained from patient. 8:29:53 ECG and BP/O2 sat monitors applied to patient. 8:29:54 Vital chart was started 8:29:56 Baseline sample Acquired. 8:29:58 Full Disclosure recording started 8:29:59 - 8:30:07 H&P Date Dictated: 06/27/2018 Within 30 days and on chart.. 8:30:09 Pre-procedure instructions explained to patient. 8:30:09 Pre-op teaching completed and patient verbalized understanding. 8:30:12 Family unavailable. 8:30:15 Patient NPO since Midnight. 8:30:29 Patient allergic to Penicillins 8:30:35 Is the patient allergic to Iodine/contrast media? No. 8:30:40 Is patient on blood thinner?No 8:30:43 Patient diabetic? Yes. 8:30:46 If diabetic: On Metformin? No 8:30:49 - 8:30:51 ----Pre-sedation anethsthesia assessment.---- 8:30:55 Previous problem with sedation/anesthesia? No ? 8:30:58 Snore? Yes 8:31:01 Sleep apnea? Yes 8:31:04 Deviated septum? No 8:31:11 Opens mouth fully? Yes 8:31:13 Sticks out tongue? Yes 8:31:20 Airway obstruction? Yes copd 8:31:25 Dentures? No ? 8:32:16 IV patent on arrival in left groin with D5/.45%NaCl at KVO. 8:32:45 Right neck area was prepped with chlora-prep and draped in sterile fashion 8:32:50 - 8:32:56 Use device set IR Diagnostic 8:32:58 Tegaderm 4 x 4 ([id number]) opened to sterile field. 8:32:59 Sterile Angiographic Pack opened to sterile field. 8:33:01 Bag Sia () opened to sterile field. 8:33:09 - 8:36:09 Micropuncture VSI 4FR kit opened to sterile field. 8:36:24 BENTSON 145cm wire ([id number]) opened to sterile field. 8:45:12 Physician arrived 8:45:20 --------ALL STOP TIME OUT------ 8:45:21 Final Timeout: patient, procedure, and site verified with staff and physician. All members of the team are in agreement. 8:48:36 Cordis 6Fr BRITE TIP 11cm sheath opened to sterile field. 8:48:38 A [employer] KA 2 5Fr 40CM catheter ([id number]) was advanced over the wire and used for . 8:48:46 Procedure started. 8:48:53 Local anesthetic to right IJ vein with Lidocaine 1% by Alfredo Obregon MD.INITIAL ACCESS ONLY 8:50:09 Versed 1 mg I.V. was administered by Flavia Manjarrez RN; for sedation; 8:50:21 Venous access obtained using ultrasound guidance. 8:50:22 Fentanyl 50 mcg I.V. was administered by Flavia Manjarrez RN; for sedation ; 8:50:45 A 6 Fr Short sheath was inserted into the Right Jugular vein 8:56:17 Vancomycin 500mg I.V.P.B was administered by Flavia Manjarrez RN; used for procedure; 8:56:31 Lidocaine 1% 20ml vial added to field was administered by Alfredo orozco MD; ; 8:56:43 Heparin Flush Bag (1000units/500ml NS) 2 bags added to field was administered by Alfredo Obregon MD; used for procedure; 9:01:41 INFLATOR BasixTOUCH ([id number]) opened to sterile field. 9:02:58 Inflate balloon Inflation number: 1 A Evercross 7 x 40 x 80 ([id number]) was prepped and advanced across the Undefined1, then inflated ). 9:03:31 CXI Catheter 90cm ([id number]) opened to sterile field. 9:05:31 Versed 1 mg I.V. was administered by Flavia Manjarrez RN; for sedation; 9:05:39 Fentanyl 50 mcg I.V. was administered by Flavia Manjarrez RN; for sedation ; 9:05:56 Jones 180 wire ([id number]) opened to sterile field. 9:06:22 ROADRUNNER .035 145 glide wire (C53702) opened to sterile field. 9:13:13 Cordis 7Fr BRITE TIP 11cm sheath opened to sterile field. 9:13:35 Inflate balloon Inflation number: 2 A ATLAS 14 x 4 x 75CM balloon ([id number]) was prepped and advanced across the Undefined1, then inflated ). 9:18:36 Inflate balloon Inflation number: 3 A ATLAS 12 x 4 x 75CM balloon ([id number]) was prepped and advanced across the Undefined1, then inflated ). 9:30:26 Dermabond Pen opened to sterile field. 9:30:47 SUTURE ETHILON 2-0 BLK MONO FS opened to sterile field. 9:30:48 Micropuncture VSI 4FR kit opened to sterile field. 9:31:47 a 16fr 23cm long Hemosplit was placed in the right ij and sutured in 9:46:01 Procedure ended.(Physican Out) 9:46:19 Fluoroscopy time 13.40 minutes. 9:46:25 Fluoroscopy dose: 931 mGy 9:46:25 Flurop Dose total: 931 9:50:16 Contrast amount:Isovue 300 25ml. 10:05:30 Report given to Med II. 10:05:55 Vital chart was stopped Intervention Summary Intervention Notes Time ActionType Lesion and Equipment Used Action# Pressure Duration Attributes 9:02:58 Inflate Undefined1 Evercross 7 x 1 0 00:00 balloon 40 x 80 ([id number]) 9:13:35 Inflate Undefined1 ATLAS 14 x 4 x 2 0 00:00 balloon 75CM balloon ([id number]) 9:18:36 Inflate Undefined1 ATLAS 12 x 4 x 3 0 00:00 balloon 75CM balloon ([id number]) Device Usage Item Name Manufacture Quantity Catalog Hospital Part Current Minim al Lot# / Number Charge Number Stock Stock Serial# Code Tegaderm 4 x 4 3M 1 1626W [id number] 542759 293967 5 (1626W) Sterile Cardinal 1 [id number] 978741 531150 5 Angiographic Health Pack Bag Decanter Microtek 1 323514 72876 673215 5 () Medical Inc. Micropuncture VSI VASCULAR 2 7266V 739665 580416 5 VSI 4FR kit SOLUTIONS BENTSON 145cm [facility] 1 [id number] 103451 020534 5 wire (H73930) Cordis 6Fr Cardinal 1 [id number] 892206 834744 5 BRITE TIP 11cm Health sheath Merit Impress Merit 1 [id number] 558314 313659 5 KA 2 5Fr 40CM Medical catheter ([id number]) INFLATOR Merit 1 [id number] 556098 281501 563954 5 BasixTOBiotix Medical (QS6259) Evercross 7 x Medtronic 1 [id number] 031837 80699 9456045 5 40 x 80 ([id number]) CXI Catheter [facility] 1 M89269 161788 426443 572988 5 7841392 90cm (X07981) Jones 180 wire [facility] 1 U13482 288309 510264 8887739 5 0036606 ([id number]) ROADRUNNER [facility] 1 S05891 600848 354540 795574 5 .035 145 glide wire (V93610) Cordis 7Fr Cardinal 1 [id number] 924550 266361 5 BRITE TIP 11cm Health sheath ATLAS 14 x 4 x Bard 1 [id number] 995836 363409 797286 5 75CM balloon ([id number]) ATLAS 12 x 4 x Bard 1 [id number] 025714 714170 5 75CM balloon ([id number]) Dermabond Pen Ethicon 1 DNX6 514235 629359 5 SUTURE ETHILON Ethicon 1 664H 067180 301531 5 2-0 BLK MONO FS Signature Audit Milam Stage Time Signature Unsigned Intra-Procedure 06/27/2018 Josey Humphries 10:05:52 AM RT(R) [facility] [address] [place] [address]
--- NOTE | ~2018-05-29 | PN ---
PATIENT:UZIEL CHOW MEDICAL RECORD: [id number] LOCATION:D. D.211 ADMISSION DATE: 05/29/18 PROGRESS NOTE DATE OF SERVICE: 06/13/2018 HISTORY: This is a 57-year-old man who has had a history of end-stage renal disease. The patient was brought to the Emergency Room with severe weakness and fever, was noted to have an infected dialysis port. The patient was taken to surgery and the port was removed, wound VAC was placed, also noted to have a second right finger ischemia. The patient has had pain on the right finger. The pain medications and has been doing well on antibiotics. He is unable to use a right finger to grab because of the pain. Denies any fever or chills. The patient has also had interstitial edema with trapped lung above the right lower lobe. PHYSICAL EXAMINATION: GENERAL: Reveals an awake man who is no acute distress. VITAL SIGNS: Temperature 98.1, heart rate of 95, respiratory rate of 18 and blood pressure 112/55, saturations 97. SHEENT: Unremarkable. NECK: Supple. There is no adenopathy. Trachea is midline. There is no thyromegaly. CHEST: Shows some mild rales on coughing. There is no chest wall tenderness. HEART: Shows no jugular venous distention, murmur or gallops. ABDOMEN: Benign. There is no tenderness, no distention. No masses. EXTREMITIES: Shows right second finger with ischemia. NEUROLOGIC: Intact. There are no focal signs. LABORATORY DATA: Showed white count is 5.3, hemoglobin 8.7 and platelet count is 114,000. Arterial blood gases; pH of 7.31, pCO2 of 56 and pO2 is 61 on 35% bilevel. The chemistries showed sodium of 125, potassium 4.8, creatinine is 3.6, magnesium is 1.7, phosphorus is 1.7. Chest x-ray showed slight interval improvement in interstitial edema with stable findings noted on the right lower lobe and partially on the right middle lobe. DISCUSSION: 1. Neuropsychiatry; the patient has no focal signs. Mental status appeared to be close to baseline. He had end-stage renal disease and has metabolic abnormalities such as hyponatremia and hypomagnesemia. 2. Hypomagnesemia needs to be corrected and hyponatremia. 3. Respiratory failure with hypercapnia. The patients is on BiPAP. 4. Cardiovascular; the patient is stable, no issues. 5. Pulmonary/respiratory; the patient is on BiPAP for respiratory acidosis and pH is improving. The patient is also on bronchodilators. 6. Renal/metabolic; the patient has metabolic abnormalities and magnesium as well as sodium, also has severe renal failure. The patient may need dialysis. 7. Gastrointestinal/dietary: The patient is on renal diet, tolerating. PLAN: 1. Correct magnesium. 2. Continue BiPAP at night and at least twice in the day time. 3. Continue antibiotics with improving leukocytosis. 4. Watch him in the care of right second finger. 5. Continue DVT prophylaxis. PROGRESS NOTE [id number] UZIEL CHOW 6. Increase activity of physical therapy. TRANSINT:[id number] Voice Confirmation ID: [id number] DOCUMENT ID: [id number] JONY SAHU at 1514 CC: [id number] DICTATION DATE: 06/13/18939 ADJUSTMENT SUPERVISOR: 06/13/18 1051 [facility] [address] [place] [address]
--- NOTE | ~2018-05-29 | PN ---
PATIENT:UZIEL CHOW MEDICAL RECORD: [id number] LOCATION:D. D.211 ADMISSION DATE: 05/29/18 PROGRESS NOTE DATE OF SERVICE: 06/16/2018 SUBJECTIVE: This is a 57-year-old man who has had a history of end-stage renal disease on hemodialysis. The patient was admitted through the Emergency Room with fever and chills, shortness of breath and was noted to have an infected dialysis port, had surgery with debridement and removal of the port. VAC suction was placed on it. He also had ischemia of the right second finger with severe pain. The patient grew MRSA and has been on vancomycin treatment. The patient has been doing well. He was transferred to the medical floor. In the last 2 days, the patient has had some vomiting when eating or drinking. He has some abdominal pain. KUB was done yesterday that was nonspecific. The patient has no abdominal pain. No nausea, no vomiting today. There is no fever or chills. The patient had basilar pneumonia, likely related to hemopneumothorax. Also had some basilar infiltrates. PHYSICAL EXAMINATION: GENERAL: Reveals well-developed, well nourished man who is in no acute distress, on BiPAP. VITAL SIGNS: Temperature 97.5, heart rate of 87, respiratory rate of 18, blood pressure 98/50, saturation 95%. SHEENT: Unremarkable. The patient is normocephalic. Pupils are equal and reactive. NECK: Supple. There is no tenderness. Trachea is midline. CHEST: Clear with good airflow bilaterally. HEART: Shows no jugular venous distention, murmur or gallops. ABDOMEN: Benign. EXTREMITIES: Shows no clubbing, cyanosis or edema. LABORATORY DATA: Showed white cell count 5.4, hemoglobin 9.5, and platelet count is 113,000. Chemistry is remarkable for potassium 3.7, sodium of 132, creatinine is 3.5, BUN is 26. Chest x-ray showed no significant change from previous x-rays. There is central vascular congestion and right basilar airspace disease, small pneumothorax in the right lung base. ASSESSMENT: 1. Pneumonia, is improving on antibiotics. 2. Infected dialysis catheter. He is being followed by surgery. 3. Hyponatremia, improving. 4. Abdominal pain, resolved, etiology unknown. 5. End-stage renal disease on hemodialysis. 6. Acute hypoxemic respiratory failure. The patient uses a BiPAP at night and as needed during the daytime. PLAN: 1. Continue BiPAP as needed in the daytime and the night. 2. Bronchodilators. 3. Continue antibiotics for a total of 7-10 days. Vancomycin for at least 10-14 days. 4. O2 supplementation. TRANSINT:[id number] Voice Confirmation ID: [id number] DOCUMENT ID: [id number] PROGRESS NOTE [id number] UZIEL CHOW AUGUSTINE K at 1648 CC: [id number] DICTATION DATE: 06/16/18 1445 HOME HEALTH SCHEDULER: 06/16/18 1514 ADM IN [facility] [address] [id number]
--- NOTE | ~2018-05-29 | PN ---
PATIENT:UZIEL CHOW MEDICAL RECORD: [id number] LOCATION:D. D.211 ADMISSION DATE: 05/29/18 PROGRESS NOTE DATE OF SERVICE: 06/17/2018 SUBJECTIVE: This is a 57-year-old male who has had a history of end-stage renal disease, has had dialysis. The patient was noted to have an infected dialysis port, came to the Emergency Room with fever and chills. The port was removed and washed and a VAC was placed. Cultures showed MRSA. Urine cultures also showed Enterococcus. The patient has been treated with antibiotics. The patient was also noted to have right second digit ischemia. The patient had amputation today per orthopedic surgery. The patient is awake and alert and denies any shortness of breath, postop. PHYSICAL EXAMINATION: GENERAL: Physical exam reveals a well-developed, well-nourished male, who is in no acute distress. VITAL SIGNS: Temperature 97.5, heart rate of 79, respiratory rate 20, blood pressure 128/34. SHEENT: Unremarkable. NECK: Supple. CHEST: Exam showed mild crackles on coughing. HEART: Exam shows no jugular venous distention, no murmur or gallops. ABDOMEN: Benign. EXTREMITIES: No clubbing, cyanosis. There is a right third digit amputation with a VAC placement. LABORATORY DATA: Lab exam shows a white count of 7.5, hemoglobin 9, platelet count is 108. Chemistry is remarkable for potassium of 4.1, sodium 129, bicarbonate is 24. Glucose 69. ASSESSMENT AND PLAN: 1. Infected dialysis port. The patient has been on vancomycin. This was stopped. We will probably restart with the amputation. 2. End-stage renal disease, the patient is on dialysis. 3. 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 4. Pneumonia. 5. 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 6. Vancomycin pending cultures. PLAN: 1. Continue bronchodilators. 2. Course of steroids. 3. Pain control. TRANSINT:[id number] Voice Confirmation ID: [id number] DOCUMENT ID: [id number] PROGRESS NOTE [id number] UZIEL CHOW JONY SAHU at 1541 CC: [id number] DICTATION DATE: 06/17/18 1556 POKER SUPERVISOR: 06/18/18 0239 ADM IN [address] [place] [address]
--- NOTE | ~2018-05-29 | PN ---
PATIENT:UZIEL CHOW MEDICAL RECORD: [id number] LOCATION:D.ICU D.230 ADMISSION DATE: 05/29/18 PROGRESS NOTE DATE OF SERVICE: 06/12/2018 SUBJECTIVE: This is a 57-year-old man who has a history of end-stage renal disease, was transferred from [place] with infected dialysis catheter. The patient has had fever and weakness. The left upper extremity dialysis catheter was nonfunctional. Also, was noted to have pulmonary edema, diabetes mellitus type 2, hyperglycemia. He had thrombocytopenia and coronary artery disease and COPD. The patient was taken to surgery, removal and washing of dialysis catheter site. The patient has had issues with pain medication, but she is doing well today. Denies any pain. There is no fever or chills. PHYSICAL EXAMINATION: GENERAL: Reveals a middle-aged male who is no acute distress. VITAL SIGNS: Temperature 97.5, heart rate of 74, respiratory rate of 18, blood pressure 127/62, pulse ox is 96%. SHEENT: Unremarkable. The patient is normocephalic. Pupils are equal and reactive. Normal nares and normal mucosa in the mouth. NECK: Supple, no adenopathy. Trachea is midline. CHEST: Clear with no crackles or wheezes. HEART: Shows no jugular venous distention, murmur or gallops. ABDOMEN: Benign, without any tenderness or mass. EXTREMITIES: Without clubbing, cyanosis or edema. LABORATORY DATA: Lab exam shows a white count of 6.2, hemoglobin 9.7, and platelet count is 136,000. Chemistry is remarkable for sodium of 128. Potassium is 4.2, BUN is 34, creatinine is 4.7. Chest x-ray shows slight interval improvement in interstitial edema with stable findings of trapped lung involving the right lower lobe and likely partial right middle lobe. ASSESSMENT: 1. Infected dialysis catheter, status post removal of catheter and washing as well as packing. The patient is currently on antibiotics. 2. End-stage renal disease. 3. Chronic obstructive pulmonary disease. The patient is on bronchodilators. 4. Ischemic right fifth finger. 5. 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 6. Acute respiratory failure with hypercapnia and hypoxia. PLAN: 1. Continue antibiotics. 2. Bronchodilators. 3. BiPAP at night and as needed during daytime. 4. Mucinex. TRANSINT:[id number] Voice Confirmation ID: [id number] DOCUMENT ID: [id number] PROGRESS NOTE [id number] UZIEL CHOW AUGUSTINE K at 0821 CC: [id number] DICTATION DATE: 06/12/18922 SENIOR IT ENGINEER: 06/12/18 1103 ADM IN [id number] [place] [address]
[~2018-05-29 21:40] MED LIST: HYDROCODONE-APA1 TAB PO
[2018-05-29] MEDS ORDERED: NEURONTIN 300300 MG PO (22:07)
[2018-05-29] MEDS ORDERED: EFFEXOR25 MG (22:09)
[2018-05-29] MEDS ORDERED: EFFEXOR37.5 MG PO (22:09)
[2018-05-29] MEDS ORDERED: SENSIPAR30 MG PO (22:10)
[2018-05-30 02:02] VITALS: BP 104/30; BMI 26.6
[2018-05-30 04:00] VITALS: BP 81/22
[2018-05-30 08:11] VITALS: BP 92/28
[2018-05-30 10:48] LABS: BASOPHILS 0.3 % (0-2); EOSINOPHILS 8.3 % (0-7); HEMATOCRIT 37.6 % (42.0-54.0); IMMATURE GRANULOCYTES 0.4 % (0-5); MCH 29.9 pg (26.0-34.0); MCHC 31.9 g/dL (31.0-37.0); MCV 93.8 fL (80.0-100.0); MEAN PLATELET VOLUME 10.3 fL (7.4-10.4); MONOCYTES 8.8 % (2-11); NEUTROPHILS 77.2 % (40-80); RBC 4.01 10x6/uL (4.20-6.10); RDW 19.6 % (11.5-14.5); WBC 9.9 10x3/uL (4.8-10.8)
[2018-05-30 11:00] LABS: ALBUMIN 2.1 g/dL (3.4-5.0); ANION GAP 14.6 mmol/L (8-16); BILIRUBIN - TOTAL 0.56 mg/dL (0.2-1.3); CALCIUM 8.1 mg/dL (8.5-10.1); CARBON DIOXIDE 23.7 mmol/L (21.0-32.0); CREATININE - SERUM 3.8 mg/dL (0.6-1.3); PLATELET COUNT 75 10x3/uL (130-400); POTASSIUM - SERUM 4.3 mmol/L (3.5-5.1); PROTEIN - SERUM 5.8 g/dL (6.4-8.2)
[2018-05-30 11:42] LABS: PLATELET ESTIMATE DECREASED
[2018-05-30 11:50] VITALS: BP 99/51
[2018-05-30 13:57] VITALS: BMI 26.5
[2018-05-30 15:52] VITALS: BP 85/23
[2018-05-30 20:34] VITALS: BP 108/78
[2018-05-31 01:15] VITALS: BP 100/44
[2018-05-31 05:40] VITALS: BP 76/23
[2018-05-31 08:42] VITALS: BP 80/21
[2018-05-31 11:12] LABS: BASOPHILS 0.3 % (0-2); EOSINOPHILS 11.8 % (0-7); HEMATOCRIT 37.2 % (42.0-54.0); HEMOGLOBIN 11.6 g/dL (13.5-17.5); IMMATURE GRANULOCYTES 0.4 % (0-5); LYMPHOCYTES 9.7 % (15-50); MCH 28.8 pg (26.0-34.0); MCHC 31.2 g/dL (31.0-37.0); MCV 92.3 fL (80.0-100.0); MONOCYTES 11.2 % (2-11); NEUTROPHILS 66.6 % (40-80); PLATELET COUNT 87 10x3/uL (130-400); RBC 4.03 10x6/uL (4.20-6.10); RDW 19.2 % (11.5-14.5); WBC 9.2 10x3/uL (4.8-10.8)
[2018-05-31 11:15] LABS: ANION GAP 16.7 mmol/L (8-16); BILIRUBIN - TOTAL 0.45 mg/dL (0.2-1.3); CREATININE - SERUM 4.6 mg/dL (0.6-1.3); POTASSIUM - SERUM 4.7 mmol/L (3.5-5.1); PROTEIN - SERUM 5.2 g/dL (6.4-8.2)
[2018-05-31 11:38] VITALS: BP 75/24
[2018-05-31 15:26] LABS: APTT 32.3 SECONDS (22.8-39.4); INR 1.22 (0.85-1.17)
[2018-05-31 16:04] VITALS: BP 84/46
[2018-06-01] VITALS (30 sets, daily range): BP systolic 75–135; BP diastolic 24–85
[2018-06-01 05:39] LABS: BASOPHILS 0.1 % (0-2); EOSINOPHILS 7.3 % (0-7); HEMOGLOBIN 11.1 g/dL (13.5-17.5); IMMATURE GRANULOCYTES 0.4 % (0-5); LYMPHOCYTES 6.5 % (15-50); MCH 28.5 pg (26.0-34.0); MCHC 30.8 g/dL (31.0-37.0); MCV 92.5 fL (80.0-100.0); MEAN PLATELET VOLUME 11.3 fL (7.4-10.4); MONOCYTES 9.5 % (2-11); NEUTROPHILS 76.2 % (40-80); PLATELET COUNT 92 10x3/uL (130-400); RBC 3.89 10x6/uL (4.20-6.10); RDW 18.8 % (11.5-14.5); WBC 9.9 10x3/uL (4.8-10.8)
[2018-06-01 06:33] LABS: ALBUMIN 2.2 g/dL (3.4-5.0); ANION GAP 16.9 mmol/L (8-16); BILIRUBIN - TOTAL 0.55 mg/dL (0.2-1.3); CALCIUM 8.1 mg/dL (8.5-10.1); CARBON DIOXIDE 22.7 mmol/L (21.0-32.0); CREATININE - SERUM 4.2 mg/dL (0.6-1.3); POTASSIUM - SERUM 4.6 mmol/L (3.5-5.1); PROTEIN - SERUM 5.8 g/dL (6.4-8.2)
[2018-06-02] VITALS (92 sets, daily range): BP systolic 61–131; BP diastolic 26–96
[2018-06-02 04:28] LABS: BASOPHILS 0.2 % (0-2); EOSINOPHILS 0.5 % (0-7); HEMATOCRIT 36.2 % (42.0-54.0); HEMOGLOBIN 11.1 g/dL (13.5-17.5); IMMATURE GRANULOCYTES 0.5 % (0-5); LYMPHOCYTES 7.2 % (15-50); MCH 28.7 pg (26.0-34.0); MCHC 30.7 g/dL (31.0-37.0); MCV 93.5 fL (80.0-100.0); MONOCYTES 8.2 % (2-11); NEUTROPHILS 83.4 % (40-80); RBC 3.87 10x6/uL (4.20-6.10); RDW 18.7 % (11.5-14.5)
[2018-06-02 04:50] LABS: PLATELET COUNT 131 10x3/uL (130-400); WBC 12.7 10x3/uL (4.8-10.8)
[2018-06-02 04:51] LABS: ALBUMIN 1.9 g/dL (3.4-5.0); ANION GAP 17.4 mmol/L (8-16); BILIRUBIN - TOTAL 0.57 mg/dL (0.2-1.3); CALCIUM 7.6 mg/dL (8.5-10.1); CARBON DIOXIDE 20.8 mmol/L (21.0-32.0); CREATININE - SERUM 4.2 mg/dL (0.6-1.3); POTASSIUM - SERUM 5.2 mmol/L (3.5-5.1); PROTEIN - SERUM 5.3 g/dL (6.4-8.2)
[2018-06-03] VITALS (39 sets, daily range): BP systolic 58–115; BP diastolic 22–77
[2018-06-03 03:51] LABS: ALBUMIN 1.8 g/dL (3.4-5.0); BASOPHILS 0.3 % (0-2); BILIRUBIN - TOTAL 0.46 mg/dL (0.2-1.3); CALCIUM 7.2 mg/dL (8.5-10.1); CARBON DIOXIDE 24.8 mmol/L (21.0-32.0); EOSINOPHILS 1.3 % (0-7); HEMATOCRIT 31.1 % (42.0-54.0); HEMOGLOBIN 9.4 g/dL (13.5-17.5); IMMATURE GRANULOCYTES 0.4 % (0-5); LYMPHOCYTES 5.8 % (15-50); MCH 27.9 pg (26.0-34.0); MCHC 30.2 g/dL (31.0-37.0); MCV 92.3 fL (80.0-100.0); MEAN PLATELET VOLUME 11.4 fL (7.4-10.4); MONOCYTES 11.4 % (2-11); NEUTROPHILS 80.8 % (40-80); PLATELET COUNT 157 10x3/uL (130-400); RBC 3.37 10x6/uL (4.20-6.10); RDW 18.5 % (11.5-14.5)
[2018-06-03 04:00] LABS: ANION GAP 12.8 mmol/L (8-16); CREATININE - SERUM 3.1 mg/dL (0.6-1.3); PHOSPHOROUS 5.3 mg/dL (2.5-4.9); POTASSIUM - SERUM 3.6 mmol/L (3.5-5.1)
[2018-06-04 03:00] VITALS: BP 79/46
[2018-06-04 04:27] LABS: BASOPHILS 0.1 % (0-2); EOSINOPHILS 3.3 % (0-7); HEMATOCRIT 32.3 % (42.0-54.0); IMMATURE GRANULOCYTES 0.5 % (0-5); MCH 28.2 pg (26.0-34.0); MCV 91.2 fL (80.0-100.0); MEAN PLATELET VOLUME 11.2 fL (7.4-10.4); MONOCYTES 8.3 % (2-11); NEUTROPHILS 80.8 % (40-80); PLATELET COUNT 168 10x3/uL (130-400); RBC 3.54 10x6/uL (4.20-6.10); RDW 17.9 % (11.5-14.5); WBC 8.6 10x3/uL (4.8-10.8)
[2018-06-04 04:50] LABS: ANION GAP 10.6 mmol/L (8-16); BILIRUBIN - TOTAL 0.43 mg/dL (0.2-1.3); PROTEIN - SERUM 5.6 g/dL (6.4-8.2)
[2018-06-04 04:54] LABS: CREATININE - SERUM 4.6 mg/dL (0.6-1.3); POTASSIUM - SERUM 4.6 mmol/L (3.5-5.1)
[2018-06-04 07:00] VITALS: BP 77/47
[2018-06-04 08:00] VITALS: BP 73/26
[2018-06-04 15:00] VITALS: BP 76/42
[2018-06-04 19:00] VITALS: BP 93/31
[2018-06-05 00:11] VITALS: BP 191/159
[2018-06-05 04:00] VITALS: BP 101/29
[2018-06-05 05:44] LABS: BASOPHILS 0.4 % (0-2); EOSINOPHILS 3.4 % (0-7); HEMATOCRIT 32.5 % (42.0-54.0); IMMATURE GRANULOCYTES 0.8 % (0-5); MCH 28.4 pg (26.0-34.0); MCHC 30.8 g/dL (31.0-37.0); MCV 92.3 fL (80.0-100.0); MEAN PLATELET VOLUME 11.6 fL (7.4-10.4); MONOCYTES 11.4 % (2-11); PLATELET COUNT 216 10x3/uL (130-400); RBC 3.52 10x6/uL (4.20-6.10); WBC 7.8 10x3/uL (4.8-10.8)
[2018-06-05 06:02] LABS: ALBUMIN 2.1 g/dL (3.4-5.0); ANION GAP 14.9 mmol/L (8-16); BILIRUBIN - TOTAL 0.44 mg/dL (0.2-1.3); CALCIUM 8.1 mg/dL (8.5-10.1); CARBON DIOXIDE 23.9 mmol/L (21.0-32.0); CREATININE - SERUM 5.3 mg/dL (0.6-1.3); PHOSPHOROUS 8.5 mg/dL (2.5-4.9); POTASSIUM - SERUM 4.8 mmol/L (3.5-5.1); PROTEIN - SERUM 5.9 g/dL (6.4-8.2); VANCOMYCIN - RANDOM 21.9 ug/mL (10.0-20.0)
[2018-06-05 22:00] VITALS: BP 73/36
[2018-06-05 23:00] VITALS: BP 75/42
[2018-06-05 23:11] VITALS: BP 89/34
[2018-06-06] VITALS (46 sets, daily range): BP systolic 78–145; BP diastolic 28–82
[2018-06-06 05:06] LABS: BASOPHILS 0.3 % (0-2); EOSINOPHILS 3.3 % (0-7); HEMATOCRIT 33.6 % (42.0-54.0); HEMOGLOBIN 10.6 g/dL (13.5-17.5); IMMATURE GRANULOCYTES 1.2 % (0-5); MCH 29.4 pg (26.0-34.0); MCHC 31.5 g/dL (31.0-37.0); MCV 93.3 fL (80.0-100.0); MEAN PLATELET VOLUME 11.2 fL (7.4-10.4); MONOCYTES 9.3 % (2-11); NEUTROPHILS 77.9 % (40-80); PLATELET COUNT 178 10x3/uL (130-400); RDW 17.6 % (11.5-14.5)
[2018-06-06 05:51] LABS: ANION GAP 16.5 mmol/L (8-16); BILIRUBIN - TOTAL 0.46 mg/dL (0.2-1.3); CALCIUM 8.1 mg/dL (8.5-10.1); CARBON DIOXIDE 25.4 mmol/L (21.0-32.0); CREATININE - SERUM 5.8 mg/dL (0.6-1.3); POTASSIUM - SERUM 4.9 mmol/L (3.5-5.1)
[2018-06-07] VITALS (82 sets, daily range): BP systolic 17–146; BP diastolic 28–67
[2018-06-07 04:34] LABS: BASOPHILS 0.2 % (0-2); HEMOGLOBIN 9.5 g/dL (13.5-17.5); IMMATURE GRANULOCYTES 0.8 % (0-5); LYMPHOCYTES 6.3 % (15-50); MCH 28.4 pg (26.0-34.0); MCHC 30.6 g/dL (31.0-37.0); MCV 92.8 fL (80.0-100.0); MONOCYTES 9.8 % (2-11); NEUTROPHILS 81.9 % (40-80); PLATELET COUNT 205 10x3/uL (130-400); RBC 3.34 10x6/uL (4.20-6.10); RDW 17.5 % (11.5-14.5); WBC 5.1 10x3/uL (4.8-10.8)
[2018-06-07 05:06] LABS: ANION GAP 14.3 mmol/L (8-16); BILIRUBIN - TOTAL 0.51 mg/dL (0.2-1.3); CARBON DIOXIDE 26.9 mmol/L (21.0-32.0); PHOSPHOROUS 7.5 mg/dL (2.5-4.9); POTASSIUM - SERUM 4.2 mmol/L (3.5-5.1); PROTEIN - SERUM 5.7 g/dL (6.4-8.2); VANCOMYCIN - RANDOM 31.9 ug/mL (10.0-20.0)
[2018-06-07 05:07] LABS: CREATININE - SERUM 4.3 mg/dL (0.6-1.3)
[2018-06-07 10:01] LABS: INR 1.05 (0.85-1.17); PROTIME 13.3 SECONDS (11.6-15.0)
[2018-06-07 10:02] LABS: APTT 40.6 SECONDS (22.8-39.4)
[2018-06-07 16:42] LABS: PROTEIN - BODY FLUID 1.6 G/DL
[2018-06-07 17:52] LABS: MACROPHAGES BF 1 %; MESOTHELIALS BF 8 %; NEUT - BF 4 %
[2018-06-08] VITALS (66 sets, daily range): BP systolic 73–122; BP diastolic 24–70
[2018-06-08 04:24] LABS: BASOPHILS 0.3 % (0-2); EOSINOPHILS 1.4 % (0-7); HEMATOCRIT 30.5 % (42.0-54.0); HEMOGLOBIN 9.3 g/dL (13.5-17.5); IMMATURE GRANULOCYTES 0.5 % (0-5); LYMPHOCYTES 9.9 % (15-50); MCH 28.4 pg (26.0-34.0); MCHC 30.5 g/dL (31.0-37.0); MEAN PLATELET VOLUME 10.8 fL (7.4-10.4); MONOCYTES 12.7 % (2-11); NEUTROPHILS 75.2 % (40-80); PLATELET COUNT 180 10x3/uL (130-400); RBC 3.28 10x6/uL (4.20-6.10); RDW 17.4 % (11.5-14.5); WBC 5.8 10x3/uL (4.8-10.8)
[2018-06-08 04:33] LABS: ANION GAP 10.2 mmol/L (8-16); BILIRUBIN - TOTAL 0.66 mg/dL (0.2-1.3); CALCIUM 7.7 mg/dL (8.5-10.1); CARBON DIOXIDE 29.7 mmol/L (21.0-32.0); CREATININE - SERUM 3.6 mg/dL (0.6-1.3); POTASSIUM - SERUM 3.9 mmol/L (3.5-5.1); PROTEIN - SERUM 5.2 g/dL (6.4-8.2); VANCOMYCIN - RANDOM 26.4 ug/mL (10.0-20.0)
[2018-06-08 19:12] LABS: ACID FAST SMEAR Negative (()); AFB SPECIMEN PROCESSING Not Indicated (())
[2018-06-09] VITALS (24 sets, daily range): BP systolic 101–176; BP diastolic 33–96
[2018-06-09 03:50] LABS: BASOPHILS 0.6 % (0-2); EOSINOPHILS 5.5 % (0-7); HEMATOCRIT 28.9 % (42.0-54.0); HEMOGLOBIN 8.8 g/dL (13.5-17.5); IMMATURE GRANULOCYTES 0.4 % (0-5); LYMPHOCYTES 10.2 % (15-50); MCH 28.3 pg (26.0-34.0); MCHC 30.4 g/dL (31.0-37.0); MCV 92.9 fL (80.0-100.0); MONOCYTES 11.9 % (2-11); NEUTROPHILS 71.4 % (40-80); PLATELET COUNT 146 10x3/uL (130-400); RBC 3.11 10x6/uL (4.20-6.10); RDW 17.2 % (11.5-14.5); WBC 5.3 10x3/uL (4.8-10.8)
[2018-06-09 04:12] LABS: ALBUMIN 2.1 g/dL (3.4-5.0); BILIRUBIN - TOTAL 0.56 mg/dL (0.2-1.3); CARBON DIOXIDE 29.4 mmol/L (21.0-32.0); CREATININE - SERUM 2.9 mg/dL (0.6-1.3); PROTEIN - SERUM 5.4 g/dL (6.4-8.2); VANCOMYCIN - RANDOM 22.7 ug/mL (10.0-20.0)
[2018-06-09 04:14] LABS: ANION GAP 7.7 mmol/L (8-16); PHOSPHOROUS 4.8 mg/dL (2.5-4.9); POTASSIUM - SERUM 3.1 mmol/L (3.5-5.1)
[2018-06-09 11:21] LABS: FUNGUS STAIN Final report (())
[2018-06-10] VITALS (24 sets, daily range): BP systolic 16–135; BP diastolic 32–83
[2018-06-10 05:31] LABS: BASOPHILS 0.5 % (0-2); EOSINOPHILS 5.6 % (0-7); HEMATOCRIT 29.4 % (42.0-54.0); HEMOGLOBIN 8.7 g/dL (13.5-17.5); IMMATURE GRANULOCYTES 0.5 % (0-5); LYMPHOCYTES 10.8 % (15-50); MCH 27.7 pg (26.0-34.0); MCHC 29.6 g/dL (31.0-37.0); MCV 93.6 fL (80.0-100.0); MEAN PLATELET VOLUME 11.6 fL (7.4-10.4); MONOCYTES 10.6 % (2-11); PLATELET COUNT 143 10x3/uL (130-400); RBC 3.14 10x6/uL (4.20-6.10); RDW 17.2 % (11.5-14.5); WBC 5.9 10x3/uL (4.8-10.8)
[2018-06-10 06:08] LABS: ALBUMIN 2.2 g/dL (3.4-5.0); BILIRUBIN - TOTAL 0.7 mg/dL (0.2-1.3); CARBON DIOXIDE 27.2 mmol/L (21.0-32.0); CREATININE - SERUM 3.2 mg/dL (0.6-1.3); PROTEIN - SERUM 5.3 g/dL (6.4-8.2); VANCOMYCIN - RANDOM 17.3 ug/mL (10.0-20.0)
[2018-06-10 06:14] LABS: ANION GAP 11.6 mmol/L (8-16); POTASSIUM - SERUM 3.8 mmol/L (3.5-5.1)
[2018-06-11] VITALS (22 sets, daily range): BP systolic 97–134; BP diastolic 37–69
[2018-06-11 03:49] LABS: BASOPHILS 0.5 % (0-2); EOSINOPHILS 8.3 % (0-7); HEMATOCRIT 30.9 % (42.0-54.0); HEMOGLOBIN 9.3 g/dL (13.5-17.5); IMMATURE GRANULOCYTES 0.5 % (0-5); LYMPHOCYTES 12.4 % (15-50); MCH 27.8 pg (26.0-34.0); MCHC 30.1 g/dL (31.0-37.0); MCV 92.5 fL (80.0-100.0); MEAN PLATELET VOLUME 10.8 fL (7.4-10.4); MONOCYTES 10.1 % (2-11); NEUTROPHILS 68.2 % (40-80); PLATELET COUNT 139 10x3/uL (130-400); RBC 3.34 10x6/uL (4.20-6.10); RDW 16.9 % (11.5-14.5); WBC 6.1 10x3/uL (4.8-10.8)
[2018-06-11 04:24] LABS: ANION GAP 14.4 mmol/L (8-16); BILIRUBIN - TOTAL 0.64 mg/dL (0.2-1.3); CALCIUM 7.9 mg/dL (8.5-10.1); PROTEIN - SERUM 5.6 g/dL (6.4-8.2); VANCOMYCIN - RANDOM 22.1 ug/mL (10.0-20.0)
[2018-06-11 04:27] LABS: CREATININE - SERUM 4.1 mg/dL (0.6-1.3); PHOSPHOROUS 6.6 mg/dL (2.5-4.9); POTASSIUM - SERUM 4.4 mmol/L (3.5-5.1)
[2018-06-12] VITALS (26 sets, daily range): BP systolic 79–134; BP diastolic 35–95
[2018-06-12 04:47] LABS: BASOPHILS 0.3 % (0-2); EOSINOPHILS 7.6 % (0-7); HEMOGLOBIN 9.7 g/dL (13.5-17.5); IMMATURE GRANULOCYTES 0.8 % (0-5); LYMPHOCYTES 11.6 % (15-50); MCH 27.7 pg (26.0-34.0); MCHC 30.3 g/dL (31.0-37.0); MCV 91.4 fL (80.0-100.0); MONOCYTES 8.7 % (2-11); PLATELET COUNT 136 10x3/uL (130-400); RDW 16.9 % (11.5-14.5); WBC 6.2 10x3/uL (4.8-10.8)
[2018-06-12 05:06] LABS: ANION GAP 14.8 mmol/L (8-16); BILIRUBIN - TOTAL 0.76 mg/dL (0.2-1.3); CALCIUM 8.4 mg/dL (8.5-10.1); CARBON DIOXIDE 24.4 mmol/L (21.0-32.0); CREATININE - SERUM 4.7 mg/dL (0.6-1.3); POTASSIUM - SERUM 4.2 mmol/L (3.5-5.1); PROTEIN - SERUM 5.8 g/dL (6.4-8.2)
[2018-06-12 17:36] LABS: CKMB 3.5 U/L (0.0-3.6); CREATINE KINASE 29 UL (21-232); POTASSIUM - SERUM 3.7 mmol/L (3.5-5.1); TROPONIN-I 0.031 ng/mL (0.000-0.060)
[2018-06-13] VITALS (13 sets, daily range): BP systolic 95–120; BP diastolic 28–67; Ht 177.8 cm; Wt 103.2 kg
[2018-06-13 04:34] LABS: BASOPHILS 0.6 % (0-2); EOSINOPHILS 5.5 % (0-7); HEMATOCRIT 28.9 % (42.0-54.0); HEMOGLOBIN 8.7 g/dL (13.5-17.5); IMMATURE GRANULOCYTES 0.8 % (0-5); LYMPHOCYTES 13.7 % (15-50); MCH 27.4 pg (26.0-34.0); MCHC 30.1 g/dL (31.0-37.0); MCV 90.9 fL (80.0-100.0); MEAN PLATELET VOLUME 12.6 fL (7.4-10.4); MONOCYTES 10.2 % (2-11); NEUTROPHILS 69.2 % (40-80); PLATELET COUNT 114 10x3/uL (130-400); RBC 3.18 10x6/uL (4.20-6.10); WBC 5.3 10x3/uL (4.8-10.8)
[2018-06-13 05:10] LABS: ALBUMIN 2.1 g/dL (3.4-5.0); ANION GAP 11.2 mmol/L (8-16); BILIRUBIN - TOTAL 0.68 mg/dL (0.2-1.3); CALCIUM 8.1 mg/dL (8.5-10.1); CARBON DIOXIDE 25.8 mmol/L (21.0-32.0); CREATININE - SERUM 3.6 mg/dL (0.6-1.3); MAGNESIUM - SERUM 1.7 mg/dL (1.8-2.4); PROTEIN - SERUM 5.6 g/dL (6.4-8.2); VANCOMYCIN - RANDOM 25.4 ug/mL (10.0-20.0)
[2018-06-13 11:59] LABS: CKMB 40.3 U/L (0.0-3.6); CREATINE KINASE 153 UL (21-232)
[2018-06-13 12:36] LABS: TROPONIN-I 5.841 ng/mL (0.000-0.060)
[2018-06-13 17:57] LABS: CKMB 33.3 U/L (0.0-3.6); CREATINE KINASE 118 UL (21-232)
[2018-06-13 18:00] LABS: TROPONIN-I 5.405 ng/mL (0.000-0.060)
[2018-06-13 23:28] LABS: CKMB 22.2 U/L (0.0-3.6); CREATINE KINASE 93 UL (21-232)
[2018-06-14 00:31] VITALS: BP 116/31
[2018-06-14 05:33] VITALS: BP 119/30
[2018-06-14 05:36] LABS: BASOPHILS 0.5 % (0-2); EOSINOPHILS 3.7 % (0-7); HEMATOCRIT 29.7 % (42.0-54.0); HEMOGLOBIN 9.3 g/dL (13.5-17.5); IMMATURE GRANULOCYTES 0.9 % (0-5); LYMPHOCYTES 12.3 % (15-50); MCHC 31.3 g/dL (31.0-37.0); MCV 89.5 fL (80.0-100.0); MEAN PLATELET VOLUME 11.7 fL (7.4-10.4); MONOCYTES 9.3 % (2-11); NEUTROPHILS 73.3 % (40-80); PLATELET COUNT 119 10x3/uL (130-400); RBC 3.32 10x6/uL (4.20-6.10); RDW 16.9 % (11.5-14.5); WBC 6.5 10x3/uL (4.8-10.8)
[2018-06-14 06:04] LABS: ALBUMIN 2.1 g/dL (3.4-5.0); ANION GAP 16.4 mmol/L (8-16); BILIRUBIN - TOTAL 0.86 mg/dL (0.2-1.3); CALCIUM 8.2 mg/dL (8.5-10.1); CREATININE - SERUM 4.4 mg/dL (0.6-1.3); MAGNESIUM - SERUM 1.8 mg/dL (1.8-2.4); POTASSIUM - SERUM 4.4 mmol/L (3.5-5.1)
[2018-06-14 07:43] VITALS: BP 112/39
[2018-06-14 15:37] VITALS: BP 128/41
[2018-06-14 20:26] VITALS: BP 109/28
[2018-06-15 00:14] VITALS: BP 103/53
[2018-06-15 04:30] VITALS: BP 113/28
[2018-06-15 05:03] LABS: BASOPHILS 0.2 % (0-2); EOSINOPHILS 3.3 % (0-7); HEMATOCRIT 28.3 % (42.0-54.0); HEMOGLOBIN 8.8 g/dL (13.5-17.5); IMMATURE GRANULOCYTES 0.7 % (0-5); LYMPHOCYTES 12.1 % (15-50); MCH 28.2 pg (26.0-34.0); MCHC 31.1 g/dL (31.0-37.0); MCV 90.7 fL (80.0-100.0); MEAN PLATELET VOLUME 12.1 fL (7.4-10.4); MONOCYTES 15.4 % (2-11); NEUTROPHILS 68.3 % (40-80); PLATELET COUNT 104 10x3/uL (130-400); RBC 3.12 10x6/uL (4.20-6.10)
[2018-06-15 05:22] LABS: WBC 4.5 10x3/uL (4.8-10.8)
[2018-06-15 05:28] LABS: ALBUMIN 1.9 g/dL (3.4-5.0); ANION GAP 9.8 mmol/L (8-16); BILIRUBIN - TOTAL 0.68 mg/dL (0.2-1.3); CALCIUM 8.1 mg/dL (8.5-10.1); CARBON DIOXIDE 29.7 mmol/L (21.0-32.0); CREATININE - SERUM 3.5 mg/dL (0.6-1.3); POTASSIUM - SERUM 3.5 mmol/L (3.5-5.1); PROTEIN - SERUM 5.5 g/dL (6.4-8.2)
[2018-06-15 07:46] VITALS: BP 127/47
[2018-06-15 16:00] VITALS: BP 115/29; BP 122/58
[2018-06-15 19:47] LABS: BASOPHILS 0.2 % (0-2); EOSINOPHILS 0 % (0-7); HEMATOCRIT 30.6 % (42.0-54.0); HEMOGLOBIN 9.5 g/dL (13.5-17.5); IMMATURE GRANULOCYTES 0.6 % (0-5); LYMPHOCYTES 5.7 % (15-50); MCH 28.5 pg (26.0-34.0); MCV 91.9 fL (80.0-100.0); MEAN PLATELET VOLUME 12.1 fL (7.4-10.4); MONOCYTES 8.6 % (2-11); NEUTROPHILS 84.9 % (40-80); PLATELET COUNT 113 10x3/uL (130-400); RBC 3.33 10x6/uL (4.20-6.10); WBC 5.4 10x3/uL (4.8-10.8)
[2018-06-15 21:01] VITALS: BP 124/33
[2018-06-16 00:58] VITALS: BP 116/38
[2018-06-16 05:46] VITALS: BP 101/36
[2018-06-16 07:18] LABS: ALBUMIN 2.1 g/dL (3.4-5.0); ANION GAP 15.2 mmol/L (8-16); BILIRUBIN - TOTAL 0.67 mg/dL (0.2-1.3); CALCIUM 8.8 mg/dL (8.5-10.1); CARBON DIOXIDE 27.5 mmol/L (21.0-32.0); CREATININE - SERUM 3.5 mg/dL (0.6-1.3); POTASSIUM - SERUM 3.7 mmol/L (3.5-5.1); PROTEIN - SERUM 6.1 g/dL (6.4-8.2)
[2018-06-16 08:22] VITALS: BP 90/53
[2018-06-16 11:04] VITALS: BP 104/50
[2018-06-16 14:31] VITALS: BP 98/50
[2018-06-16 20:54] VITALS: BP 118/29
[2018-06-17 01:12] VITALS: BP 106/27
[2018-06-17 05:44] LABS: BASOPHILS 0.4 % (0-2); EOSINOPHILS 0.4 % (0-7); HEMATOCRIT 30.5 % (42.0-54.0); IMMATURE GRANULOCYTES 0.3 % (0-5); LYMPHOCYTES 9.3 % (15-50); MCH 27.6 pg (26.0-34.0); MCHC 29.5 g/dL (31.0-37.0); MCV 93.6 fL (80.0-100.0); MEAN PLATELET VOLUME 10.7 fL (7.4-10.4); MONOCYTES 9.3 % (2-11); NEUTROPHILS 80.3 % (40-80); PLATELET COUNT 108 10x3/uL (130-400); RBC 3.26 10x6/uL (4.20-6.10); RDW 17.3 % (11.5-14.5)
[2018-06-17 05:49] LABS: WBC 7.5 10x3/uL (4.8-10.8)
[2018-06-17 05:57] VITALS: BP 120/34
[2018-06-17 06:16] LABS: ALBUMIN 2.1 g/dL (3.4-5.0); ANION GAP 15.7 mmol/L (8-16); BILIRUBIN - TOTAL 0.81 mg/dL (0.2-1.3); CALCIUM 8.5 mg/dL (8.5-10.1); CARBON DIOXIDE 24.4 mmol/L (21.0-32.0); CREATININE - SERUM 4.2 mg/dL (0.6-1.3); PHOSPHOROUS 7.5 mg/dL (2.5-4.9); POTASSIUM - SERUM 4.1 mmol/L (3.5-5.1); PROTEIN - SERUM 5.9 g/dL (6.4-8.2)
[2018-06-17 20:38] VITALS: BP 114/40
[2018-06-18 00:30] VITALS: BP 110/40
[2018-06-18 04:30] VITALS: BP 107/40
[2018-06-18 06:13] LABS: BASOPHILS 0.4 % (0-2); HEMOGLOBIN 8.8 g/dL (13.5-17.5); IMMATURE GRANULOCYTES 0.3 % (0-5); LYMPHOCYTES 10.5 % (15-50); MCHC 30.3 g/dL (31.0-37.0); MCV 92.4 fL (80.0-100.0); MEAN PLATELET VOLUME 10.7 fL (7.4-10.4); MONOCYTES 13.8 % (2-11); PLATELET COUNT 127 10x3/uL (130-400); RBC 3.14 10x6/uL (4.20-6.10); RDW 17.2 % (11.5-14.5); WBC 7.6 10x3/uL (4.8-10.8)
[2018-06-18 06:36] LABS: ALBUMIN 2.1 g/dL (3.4-5.0); ANION GAP 12.3 mmol/L (8-16); BILIRUBIN - TOTAL 0.82 mg/dL (0.2-1.3); CALCIUM 8.3 mg/dL (8.5-10.1); CARBON DIOXIDE 28.4 mmol/L (21.0-32.0); POTASSIUM - SERUM 3.7 mmol/L (3.5-5.1); PROTEIN - SERUM 5.9 g/dL (6.4-8.2)
[2018-06-18 06:46] LABS: CREATININE - SERUM 3.1 mg/dL (0.6-1.3); PHOSPHOROUS 5.5 mg/dL (2.5-4.9)
[2018-06-18 08:47] VITALS: BP 132/41
[2018-06-18 12:53] VITALS: BP 112/62
[2018-06-18 16:13] VITALS: BP 126/38
[2018-06-18 20:46] VITALS: BP 114/64
[2018-06-19 01:19] VITALS: BP 111/24
[2018-06-19 05:05] VITALS: BP 86/52
[2018-06-19 05:22] LABS: BASOPHILS 0.3 % (0-2); EOSINOPHILS 2.4 % (0-7); HEMATOCRIT 30.3 % (42.0-54.0); HEMOGLOBIN 9.2 g/dL (13.5-17.5); IMMATURE GRANULOCYTES 0.2 % (0-5); LYMPHOCYTES 11.8 % (15-50); MCHC 30.4 g/dL (31.0-37.0); MCV 92.1 fL (80.0-100.0); MEAN PLATELET VOLUME 12.2 fL (7.4-10.4); MONOCYTES 11.1 % (2-11); NEUTROPHILS 74.2 % (40-80); PLATELET COUNT 140 10x3/uL (130-400); RBC 3.29 10x6/uL (4.20-6.10); WBC 5.8 10x3/uL (4.8-10.8)
[2018-06-19 05:56] LABS: ALBUMIN 2.3 g/dL (3.4-5.0); ANION GAP 15.8 mmol/L (8-16); BILIRUBIN - TOTAL 0.91 mg/dL (0.2-1.3); CALCIUM 8.7 mg/dL (8.5-10.1); CARBON DIOXIDE 25.3 mmol/L (21.0-32.0); CREATININE - SERUM 3.8 mg/dL (0.6-1.3); MAGNESIUM - SERUM 1.9 mg/dL (1.8-2.4); PHOSPHOROUS 6.3 mg/dL (2.5-4.9); POTASSIUM - SERUM 4.1 mmol/L (3.5-5.1); PROTEIN - SERUM 6.3 g/dL (6.4-8.2)
[2018-06-19 07:35] VITALS: BP 101/37
[2018-06-19 15:57] VITALS: BP 96/28
[2018-06-19 21:28] VITALS: BP 103/32
[2018-06-20 00:37] VITALS: BP 89/28
[2018-06-20 05:29] VITALS: BP 111/67
[2018-06-20 07:08] LABS: BASOPHILS 0.2 % (0-2); HEMATOCRIT 31.3 % (42.0-54.0); HEMOGLOBIN 9.6 g/dL (13.5-17.5); IMMATURE GRANULOCYTES 0.4 % (0-5); LYMPHOCYTES 13.7 % (15-50); MCH 28.7 pg (26.0-34.0); MCHC 30.7 g/dL (31.0-37.0); MCV 93.4 fL (80.0-100.0); MEAN PLATELET VOLUME 12.4 fL (7.4-10.4); MONOCYTES 10.3 % (2-11); NEUTROPHILS 72.4 % (40-80); PLATELET COUNT 136 10x3/uL (130-400); RBC 3.35 10x6/uL (4.20-6.10); RDW 17.1 % (11.5-14.5); WBC 5.4 10x3/uL (4.8-10.8)
[2018-06-20 07:18] LABS: ALBUMIN 2.3 g/dL (3.4-5.0); ANION GAP 9.5 mmol/L (8-16); BILIRUBIN - TOTAL 0.86 mg/dL (0.2-1.3); CALCIUM 8.8 mg/dL (8.5-10.1); PHOSPHOROUS 5.1 mg/dL (2.5-4.9); POTASSIUM - SERUM 3.5 mmol/L (3.5-5.1); PROTEIN - SERUM 6.3 g/dL (6.4-8.2)
[2018-06-20 13:06] VITALS: BP 124/77
[2018-06-20 20:33] VITALS: BP 117/28
[2018-06-21 05:21] LABS: BASOPHILS 0.2 % (0-2); HEMATOCRIT 31.2 % (42.0-54.0); HEMOGLOBIN 9.3 g/dL (13.5-17.5); IMMATURE GRANULOCYTES 0.4 % (0-5); LYMPHOCYTES 11.4 % (15-50); MCH 27.7 pg (26.0-34.0); MCHC 29.8 g/dL (31.0-37.0); MCV 92.9 fL (80.0-100.0); MEAN PLATELET VOLUME 10.7 fL (7.4-10.4); MONOCYTES 10.7 % (2-11); NEUTROPHILS 72.3 % (40-80); PLATELET COUNT 121 10x3/uL (130-400); RBC 3.36 10x6/uL (4.20-6.10); RDW 17.1 % (11.5-14.5); WBC 5.6 10x3/uL (4.8-10.8)
[2018-06-21 05:38] VITALS: BP 119/20
[2018-06-21 05:51] LABS: ALBUMIN 2.2 g/dL (3.4-5.0); BILIRUBIN - TOTAL 0.82 mg/dL (0.2-1.3); CALCIUM 8.4 mg/dL (8.5-10.1); CARBON DIOXIDE 29.7 mmol/L (21.0-32.0); CREATININE - SERUM 3.6 mg/dL (0.6-1.3); MAGNESIUM - SERUM 1.8 mg/dL (1.8-2.4); PHOSPHOROUS 5.2 mg/dL (2.5-4.9); POTASSIUM - SERUM 3.7 mmol/L (3.5-5.1); PROTEIN - SERUM 6.2 g/dL (6.4-8.2)
[2018-06-21 14:48] VITALS: BP 122/27
[2018-06-21 21:17] VITALS: BP 75/58
[2018-06-22 05:28] LABS: BASOPHILS 0.2 % (0-2); EOSINOPHILS 4.6 % (0-7); HEMATOCRIT 30.1 % (42.0-54.0); HEMOGLOBIN 8.9 g/dL (13.5-17.5); IMMATURE GRANULOCYTES 0.4 % (0-5); LYMPHOCYTES 9.7 % (15-50); MCH 27.6 pg (26.0-34.0); MCHC 29.6 g/dL (31.0-37.0); MCV 93.5 fL (80.0-100.0); MEAN PLATELET VOLUME 12.6 fL (7.4-10.4); MONOCYTES 11.1 % (2-11); PLATELET COUNT 120 10x3/uL (130-400); RBC 3.22 10x6/uL (4.20-6.10); RDW 17.2 % (11.5-14.5); WBC 4.8 10x3/uL (4.8-10.8)
[2018-06-22 05:55] LABS: ANION GAP 12.8 mmol/L (8-16); CALCIUM 8.4 mg/dL (8.5-10.1); CARBON DIOXIDE 27.7 mmol/L (21.0-32.0); CREATININE - SERUM 2.9 mg/dL (0.6-1.3); POTASSIUM - SERUM 3.5 mmol/L (3.5-5.1)
[2018-06-22 06:35] VITALS: BP 92/26
[2018-06-22 09:03] VITALS: BP 109/20
[2018-06-22 12:11] VITALS: BP 134/78
[2018-06-22 20:40] VITALS: BP 108/28
[2018-06-23 04:41] LABS: BASOPHILS 0.6 % (0-2); EOSINOPHILS 4.1 % (0-7); HEMATOCRIT 28.4 % (42.0-54.0); HEMOGLOBIN 8.5 g/dL (13.5-17.5); IMMATURE GRANULOCYTES 0.2 % (0-5); LYMPHOCYTES 14.8 % (15-50); MCH 27.9 pg (26.0-34.0); MCHC 29.9 g/dL (31.0-37.0); MCV 93.1 fL (80.0-100.0); MEAN PLATELET VOLUME 11.3 fL (7.4-10.4); MONOCYTES 10.1 % (2-11); NEUTROPHILS 70.2 % (40-80); PLATELET COUNT 107 10x3/uL (130-400); RBC 3.05 10x6/uL (4.20-6.10); RDW 16.9 % (11.5-14.5); WBC 4.9 10x3/uL (4.8-10.8)
[2018-06-23 04:52] VITALS: BP 103/67
[2018-06-23 04:55] LABS: ANION GAP 11.1 mmol/L (8-16); CALCIUM 8.4 mg/dL (8.5-10.1); CARBON DIOXIDE 27.6 mmol/L (21.0-32.0); CREATININE - SERUM 3.6 mg/dL (0.6-1.3); POTASSIUM - SERUM 3.7 mmol/L (3.5-5.1)
[2018-06-23 08:21] VITALS: BP 127/40
[2018-06-23] MEDS ORDERED: BROVANA15 MCG/2 M INH (15:06)
[2018-06-23] MEDS ORDERED: MIDODRINE HCL5 MG PO (15:07)
[2018-06-23] MEDS ORDERED: IPRAT-ALBUT 0.5-3 ML INH (15:07)
[2018-06-23] MEDS ORDERED: IPRAT-ALBUT 0.5-3 ML UPD (15:07)
[2018-06-23] MEDS ORDERED: Lovenox INJ SC (15:07)
[2018-06-23] MEDS ORDERED: PROTONIX40 MG PO (15:08)
[2018-06-23 16:23] VITALS: BP 109/32
[2018-06-23 20:16] VITALS: BP 123/31
[2018-06-24 01:25] VITALS: BP 113/29
[2018-06-24 05:03] VITALS: BP 106/26
[2018-06-24 07:23] LABS: BASOPHILS 0.6 % (0-2); EOSINOPHILS 6.6 % (0-7); HEMATOCRIT 29.3 % (42.0-54.0); HEMOGLOBIN 8.6 g/dL (13.5-17.5); IMMATURE GRANULOCYTES 0.2 % (0-5); LYMPHOCYTES 17.2 % (15-50); MCH 27.5 pg (26.0-34.0); MCHC 29.4 g/dL (31.0-37.0); MCV 93.6 fL (80.0-100.0); MEAN PLATELET VOLUME 11.9 fL (7.4-10.4); MONOCYTES 11.4 % (2-11); PLATELET COUNT 103 10x3/uL (130-400); RBC 3.13 10x6/uL (4.20-6.10)
[2018-06-24 07:30] LABS: ANION GAP 9.8 mmol/L (8-16); CALCIUM 8.4 mg/dL (8.5-10.1); CARBON DIOXIDE 28.5 mmol/L (21.0-32.0); CREATININE - SERUM 2.8 mg/dL (0.6-1.3); POTASSIUM - SERUM 3.3 mmol/L (3.5-5.1)
[2018-06-24 08:41] VITALS: BP 129/49
[2018-06-24 12:39] VITALS: BP 136/50
[2018-06-24 15:52] VITALS: BP 131/69
[2018-06-24 20:01] VITALS: BP 117/34
[2018-06-25 00:45] VITALS: BP 118/56
[2018-06-25 05:05] LABS: BASOPHILS 0.4 % (0-2); EOSINOPHILS 7.3 % (0-7); HEMATOCRIT 31.1 % (42.0-54.0); HEMOGLOBIN 9.2 g/dL (13.5-17.5); IMMATURE GRANULOCYTES 0.4 % (0-5); LYMPHOCYTES 13.6 % (15-50); MCH 27.2 pg (26.0-34.0); MCHC 29.6 g/dL (31.0-37.0); MEAN PLATELET VOLUME 11.3 fL (7.4-10.4); MONOCYTES 9.4 % (2-11); NEUTROPHILS 68.9 % (40-80); PLATELET COUNT 104 10x3/uL (130-400); RBC 3.38 10x6/uL (4.20-6.10); RDW 16.6 % (11.5-14.5); WBC 5.2 10x3/uL (4.8-10.8)
[2018-06-25 05:16] LABS: CALCIUM 8.9 mg/dL (8.5-10.1); CREATININE - SERUM 3.5 mg/dL (0.6-1.3)
[2018-06-25 05:40] VITALS: BP 111/44
[2018-06-25 08:04] VITALS: BP 126/54
[2018-06-25 11:31] VITALS: BP 117/31
[2018-06-25 16:12] VITALS: BP 122/46
[2018-06-25 20:38] VITALS: BP 110/32
[2018-06-26 01:31] VITALS: BP 107/43
[2018-06-26 05:03] LABS: BASOPHILS 0.5 % (0-2); EOSINOPHILS 8.6 % (0-7); HEMATOCRIT 29.8 % (42.0-54.0); IMMATURE GRANULOCYTES 0.3 % (0-5); LYMPHOCYTES 12.8 % (15-50); MCH 27.3 pg (26.0-34.0); MCHC 30.2 g/dL (31.0-37.0); MCV 90.3 fL (80.0-100.0); MEAN PLATELET VOLUME 11.7 fL (7.4-10.4); MONOCYTES 11.3 % (2-11); NEUTROPHILS 66.5 % (40-80); PLATELET COUNT 117 10x3/uL (130-400); RDW 16.6 % (11.5-14.5); WBC 5.9 10x3/uL (4.8-10.8)
[2018-06-26 05:17] LABS: ANION GAP 13.4 mmol/L (8-16); CALCIUM 8.4 mg/dL (8.5-10.1); CARBON DIOXIDE 27.4 mmol/L (21.0-32.0); POTASSIUM - SERUM 4.8 mmol/L (3.5-5.1)
[2018-06-26 06:12] VITALS: BP 93/31
[2018-06-26 07:50] VITALS: BP 113/30
[2018-06-26 15:31] VITALS: BP 110/21
[2018-06-26 20:00] VITALS: BP 115/21
[2018-06-27] VITALS (10 sets, daily range): BP systolic 97–128; BP diastolic 32–58
[2018-06-27] MEDS ORDERED: PROCRIT/EP4000 UNITS SC (17:31)
[2018-06-28] VITALS: BP 112/49
[2018-06-28 04:00] VITALS: BP 108/30
[2018-06-28 08:11] VITALS: BP 121/48
[2018-06-28] MEDS ORDERED: BACTRIM 400-801 TAB PO (12:26)
[2018-07-05 11:20] LABS: FUNGUS MYCOLOGY CULTURE Final report (())
== END 2018-06-28 13:49 | DRG 252 ==
LOC: D.M2 21:40 → D.ICU 21:51 → D.M2 21:51 → D.ICU 06-01 16:13 → D.M2 06-04 20:40 → D.ICU 06-05 22:00 → D.M2 06-13 11:24
PROVIDERS: Family Medicine; Family Medicine Adult Medicine; Internal Medicine; Internal Medicine Cardiovascular Disease; Internal Medicine Nephrology; Internal Medicine Pulmonary Disease; Surgery
PROC: 03PY0JZ Removal of Synthetic Substitute from Upper Artery, Open Approach (ICD-10-PCS; principal; 2018-06-01 09:30)
PROC: 03Q80ZZ Repair Left Brachial Artery, Open Approach (ICD-10-PCS; 2018-06-01 09:30)
PROC: 0W993ZZ Drainage of Right Pleural Cavity, Percutaneous Approach (ICD-10-PCS; 2018-06-07)
PROC: 0X6J0ZC Detachment at Right Hand, Partial 3rd Ray, Open Approach (ICD-10-PCS; 2018-06-16)
PROC: B5181ZZ Fluoroscopy of Superior Vena Cava using Low Osmolar Contrast (ICD-10-PCS; 2018-06-22)
PROC: 0JHP3XZ Insertion of Tunneled Vascular Access Device into Left Lower Leg Subcutaneous Tissue and Fascia, Percutaneous Approach (ICD-10-PCS; 2018-06-22)
PROC: 06HN33Z Insertion of Infusion Device into Left Femoral Vein, Percutaneous Approach (ICD-10-PCS; 2018-06-22)
PROC: B51C1ZA Fluoroscopy of Left Lower Extremity Veins using Low Osmolar Contrast, Guidance (ICD-10-PCS; 2018-06-22)
PROC: 03723ZZ Dilation of Innominate Artery, Percutaneous Approach (ICD-10-PCS; 2018-06-27)
PROC: 027V3ZZ Dilation of Superior Vena Cava, Percutaneous Approach (ICD-10-PCS; 2018-06-27)
PROC: 0JH63XZ Insertion of Tunneled Vascular Access Device into Chest Subcutaneous Tissue and Fascia, Percutaneous Approach (ICD-10-PCS; 2018-06-27)
PROC: 05HM33Z Insertion of Infusion Device into Right Internal Jugular Vein, Percutaneous Approach (ICD-10-PCS; 2018-06-27)
PROC: B5131ZA Fluoroscopy of Right Jugular Veins using Low Osmolar Contrast, Guidance (ICD-10-PCS; 2018-06-27)
DX: T82.7XXA Infection and inflammatory reaction due to other cardiac and vascular devices, implants and grafts, initial encounter (principal); N18.6 End stage renal disease; A41.9 Sepsis, unspecified organism; R65.20 Severe sepsis without septic shock; J96.21 Acute and chronic respiratory failure with hypoxia; J96.02 Acute respiratory failure with hypercapnia; J96.01 Acute respiratory failure with hypoxia; J69.0 Pneumonitis due to inhalation of food and vomit; I12.0 Hypertensive chronic kidney disease with stage 5 chronic kidney disease or end stage renal disease; N25.81 Secondary hyperparathyroidism of renal origin; T81.4XXA Infection following a procedure, initial encounter; J93.9 Pneumothorax, unspecified; J44.1 Chronic obstructive pulmonary disease with (acute) exacerbation; J44.0 Chronic obstructive pulmonary disease with (acute) lower respiratory infection; E46 Unspecified protein-calorie malnutrition; Y83.8 Other surgical procedures as the cause of abnormal reaction of the patient, or of later complication, without mention of misadventure at the time of the procedure; E11.22 Type 2 diabetes mellitus with diabetic chronic kidney disease; E11.65 Type 2 diabetes mellitus with hyperglycemia; Z99.2 Dependence on renal dialysis; E11.40 Type 2 diabetes mellitus with diabetic neuropathy, unspecified; E11.51 Type 2 diabetes mellitus with diabetic peripheral angiopathy without gangrene; D63.1 Anemia in chronic kidney disease; D69.6 Thrombocytopenia, unspecified; I25.10 Atherosclerotic heart disease of native coronary artery without angina pectoris; B99.8 Other infectious disease; Z72.0 Tobacco use; E87.6 Hypokalemia

== ENCOUNTER 2018-06-28 11:25 | Inpatient (IN) | payer MEDICARE ==
[~2018-06-28] VITALS: Ht 177.8 cm; Wt 103.0 kg
--- NOTE | ~2018-06-28 | OP ---
PATIENT NAME: UZIEL CHOW MEDICAL RECORD: [id number] :60 [facility] DATE:06/28/18 SURGEON: ARMEN GRIFFITHS MD DATE OF OPERATION: 07/09/2018 PREOPERATIVE DIAGNOSIS: HemoSplit, desires removal. POSTOPERATIVE DIAGNOSES: HemoSplit, desires removal. PROCEDURE: Removal of HemoSplit catheter from the left groin (tunneled, cuffed dual lumen hemodialysis catheter). SURGEON: Armen Griffiths MD ELECTRO PLATER: None. BLOOD LOSS: Minimal. ANESTHESIA: Local with IV sedation. COMPLICATIONS: None. The risks, possible complications, and alternatives to the procedure were explained to the patient. He elected to proceed. The patient has functioning catheter access elsewhere. He elected to have the groin catheter removed as it is no longer needed. The patient was conveyed to the operating room electively on 07/09/2018. IV sedation was induced by the anesthesia staff. The left groin and left lower extremity was sterilely prepped and draped. A local anesthetic was infiltrated to skin and subcutaneous tissues around the HemoSplit catheter tract. I then placed a 3-0 Vicryl Rapide deep to the HemoSplit catheter and then brought up around through the skin superficial to the catheter and then removed the catheter and then tied the suture, thus closing HemoSplit catheter tract. There was a small opening in the left groin that was bleeding and I oversewed this with a horizontal mattress 3-0 Vicryl Rapide suture. I then stuffed some fibrillar up along the HemoSplit catheter tract for hemostasis. A sterile dressing was applied. The patient was then conveyed to the postanesthesia care unit where he was in stable condition. There was no need for him to follow up with me in the office unless he develops complication related to this operative procedure. The sutures should dissolve on their own in about 10-14 days. TRANSINT:[id number] Voice Confirmation ID: [id number] DOCUMENT ID: [id number] OPERATIVE REPORT [id number] CHOWUZIEL ARMEN GRIFFITHS MD at 1331 CC: [id number] DICTATION DATE: 07/09/18 172 SR. MEDIA MANAGER: 07/09/18 1755 DIS IN 07/14/18 [facility] [address] [place] [address]
--- NOTE | ~2018-06-28 | RHP ---
PATIENT: UZIEL CHOW MEDICAL RECORD: [id number] ACCOUNT: [id number] LOCATION:[facility]1119 : 60 ADMISSION DATE: 06/28/18 REHABILITATION HISTORY AND PHYSICAL EXAMINATION POST ADMISSION PHYSICIAN EXAMINATION DATE OF ADMISSION: 06/28/2018 ADMITTING DIAGNOSIS: Uremic myopathy. HISTORY OF PRESENT ILLNESS: The patient is a gentleman who is admitted for a neurological disorder of uremic myopathy. He is a 57-year-old gentleman with end-stage renal disease. He was transferred from [place] with grossly infected dialysis graft to his left upper arm with ulceration and pus. He has got end-stage renal disease and is on dialysis Tuesday, and Tuesday. He has multiple ongoing chronic medical problems including COPD, severe peripheral vascular disease. He is post-bilateral below the knee amputations, several digit amputations of his fingers, diabetes, peripheral neuropathy, chronic back pain, secondary hyperparathyroidism, coronary artery disease, anemia of chronic disease. He has got a wound VAC to his left upper extremity to his infected graft area. He was admitted to the ICU secondary to hypercapnic and hypoxic respiratory failure and placed on BiPAP. ABG showed a pH of 7.16, pCO2 of 68, pO2 of 104 and a sat of 96% with altered mental status and lethargy. He has had thoracentesis several times in the past, recurrent pleural sections. He underwent a thoracentesis on 06/07/2018 with 950 cc out. He has also had hemodialysis access placed on 06/22/2018. He is currently on 3 liters of O2. He is on BiPAP at night, he is requiring oxygen use to maintain his O2 sats. States that his legs have atrophy during his hospital stay and proximal weakness prior to his hospitalization. He uses a motorized wheelchair, he was able to use a slide board to transfer himself in and out of this. He states he has prosthetic legs, but they are old and irritate his stumps. He is right-hand dominant. He has second and fifth digits of his right hand that had been amputated with bandage dresses noticed. He plans to return home at his prior level of function or better after his acute stay in the inpatient rehab. He is currently minimum to total assist with ADLs and max to total assist with mobility. He has got extreme weakness, more proximal than distal. BARRIERS: Include; he needs a better quality of life and to be able to return back to his prior level of function since he is debilitated during his hospital stay. He needs O2 setup, monitor wound progress, wound VAC, monitor his hemodialysis process, a new hemodialysis access. He plans to return home with his at his prior level of functioning or better if possible. COMORBIDITIES: In this patient include hypoxic and hypercapnic respiratory failure, acute ischemia of digits status post amputation, end-stage renal disease, acute infection of his AV graft, COPD, anemia, peripheral vascular disease, coronary artery disease, acute dependence on renal dialysis, secondary hyperparathyroidism, acute CHF and superior vena caval syndrome. PAST MEDICAL HISTORY: Significant for neuropathy, numbness, tingling, sinus problems. He has got a history of diabetes, hypertension, stents, edema, pneumonia, BiPAP, renal failure, low platelets, urinary retention, tobacco use, chronic back pain, compression fractures and pressure ulcers. PAST SURGICAL HISTORY: Includes gallbladder surgery, knee surgery, dialysis, HISTORY AND PHYSICAL [id number] UZIEL CHOW toes amputated, fingers amputated, fistula creation and bilateral [id number] amputations. ALLERGIES: PENICILLIN. CURRENT MEDICATIONS: Include Procrit 8000 units 3 times weekly. He is on Lovenox 30 mg subQ daily, Sensipar 30 mg daily, venlafaxine he is on 37.5 mg daily, Bactrim 1 tablet daily. He is on Protonix 40 mg daily, Calmoseptine daily, MiraLax 17 grams in 8 ounces of water daily, DuoNeb updrafts 3 cc q.i.d. He is on Buckhorn 10/325 one tab every 4 hours p.r.n., Neurontin 300 mg b.i.d., Brovana 15 mcg b.i.d. and proamatine 10 mg t.i.d. HABITS: Does have history of tobacco use. FAMILY HISTORY: Noncontributory. SOCIAL HISTORY: The patient hopes to return back home with his and get back to his prior level of functioning. REVIEW OF SYSTEMS: GENERAL: Does complain of weakness and fatigue. HEENT: Denies cold, cough, or congestion. CARDIOVASCULAR: Denies any chest pain. PHYSICAL EXAMINATION: VITAL SIGNS: Stable, afebrile. GENERAL: A much older than stated age gentleman in no acute distress upon exam. HEENT: Normocephalic and atraumatic. Mucosa moist. NECK: Supple. No lymphadenopathy. LUNGS: Clear at this time. HEART: Regular rate and rhythm. ABDOMEN: Benign. EXTREMITIES: He does have noted amputations below the knee on both sides. He has got finger amputations also. NEUROLOGIC: Does have noted weakness. LABORATORY DATA: White count is 4.9, H&H 8.4 and 27.5 and platelet count was noted to be 99. Sodium is 124, potassium 4.4, BUN and creatinine of 30 and 3.5 and blood sugar is noted to be 102. ASSESSMENT: This is a 57-year-old gentleman admitted to the rehab with a working diagnosis of uremic myopathy. The patient has potential to make improvement. We instituted the following multidisciplinary therapies include, but not limited to physical, occupational, respiratory, speech, nutritional services, prosthetics and orthotics. Given his complex medical condition and risk for more complications, rehabilitation services cannot be provided at a low level of care such as a skilled nurse facility. PLAN: 1. Admit to [facility] for intensive inpatient therapy to include the following disciplines: A. Physical therapy to improve gait, all transfer skills and bed mobility to a modified independent level. B. Occupational therapy to a modified independent level. C. Case management to assist with discharge planning and placement options. HISTORY AND PHYSICAL [id number] UZIEL CHOW D. Nutrition to assist with nutritional needs. E. Rehabilitation nursing to assist in monitoring the patient's underlying medical conditions and to assist with any type of bowel or bladder management. 2. The patient's current medication and medical care will be continued. 3. The patient will be placed on standard fall precautions. 4. We will monitor sodium levels closely. 5. We will follow up in the a.m. TRANSINT:[id number] Voice Confirmation ID: [id number] DOCUMENT ID: [id number] DONAVAN notes whether there has been none or any medical/functional change since admission: - No change since preadmission screen. DONAVAN attests patient continues to be appropriate for IRF: - Continues to be appropriate. CLARICE ALLISON MD at 1733 CC: [id number] DICTATION DATE: 06/29/18 0857 FIRST LEVELER: 06/29/18 1044 ADM IN [facility] [address] [id number]
[~2018-06-28 11:25] MED LIST changes: +BROVANA15 MCG/2 M INH; +EFFEXOR25 MG; +EFFEXOR37.5 MG PO; +IPRAT-ALBUT 0.5-3 ML INH; +IPRAT-ALBUT 0.5-3 ML UPD; +Lovenox INJ SC; +MIDODRINE HCL5 MG PO; +NEURONTIN 300300 MG PO; +PROCRIT/EP4000 UNITS SC; +PROTONIX40 MG PO; +SENSIPAR30 MG PO
[2018-06-28] MEDS ORDERED: BACTRIM 400-801 TAB PO (12:26)
[2018-06-28 15:31] VITALS: BP 137/28; BMI 32.6
[2018-06-28 17:56] VITALS: BP 109/38
[2018-06-28 23:36] VITALS: BP 143/51
[2018-06-29 05:53] VITALS: BP 105/44
[2018-06-29 06:12] LABS: BASOPHILS 0.6 % (0-2); EOSINOPHILS 5.7 % (0-7); HEMATOCRIT 27.5 % (42.0-54.0); HEMOGLOBIN 8.4 g/dL (13.5-17.5); IMMATURE GRANULOCYTES 0.4 % (0-5); LYMPHOCYTES 14.9 % (15-50); MCH 27.5 pg (26.0-34.0); MCHC 30.5 g/dL (31.0-37.0); MCV 89.9 fL (80.0-100.0); MEAN PLATELET VOLUME 12.2 fL (7.4-10.4); MONOCYTES 10.8 % (2-11); NEUTROPHILS 67.6 % (40-80); PLATELET COUNT 99 10x3/uL (130-400); RBC 3.06 10x6/uL (4.20-6.10); RDW 16.9 % (11.5-14.5); WBC 4.9 10x3/uL (4.8-10.8)
[2018-06-29 06:45] LABS: CARBON DIOXIDE 24.4 mmol/L (21.0-32.0); CREATININE - SERUM 3.5 mg/dL (0.6-1.3); POTASSIUM - SERUM 4.4 mmol/L (3.5-5.1)
[2018-06-29 07:22] LABS: PLATELET ESTIMATE DECREASED
[2018-06-29 12:20] VITALS: BP 133/31
[2018-06-29 16:09] VITALS: BMI 32.5
[2018-06-29 18:00] VITALS: BP 135/33
[2018-06-30 01:44] VITALS: BP 112/38
[2018-06-30 07:08] VITALS: BP 132/37
[2018-06-30 12:00] VITALS: BP 121/48
[2018-06-30 16:30] LABS: BASOPHILS 0.1 % (0-2); EOSINOPHILS 0.5 % (0-7); HEMATOCRIT 28.9 % (42.0-54.0); IMMATURE GRANULOCYTES 0.3 % (0-5); LYMPHOCYTES 2.5 % (15-50); MCH 27.4 pg (26.0-34.0); MCHC 31.1 g/dL (31.0-37.0); MEAN PLATELET VOLUME 11.5 fL (7.4-10.4); MONOCYTES 5.4 % (2-11); NEUTROPHILS 91.2 % (40-80); RBC 3.29 10x6/uL (4.20-6.10); RDW 16.8 % (11.5-14.5)
[2018-06-30 16:49] LABS: MCV 87.8 fL (80.0-100.0); PLATELET COUNT 125 10x3/uL (130-400)
[2018-06-30 18:00] VITALS: BP 120/24
[2018-06-30 18:40] LABS: CALCIUM 8.2 mg/dL (8.5-10.1); CARBON DIOXIDE 22.9 mmol/L (21.0-32.0); CREATININE - SERUM 4.3 mg/dL (0.6-1.3); GLUCOSE 112 mg/dL (74-106); UREA NITROGEN 45 mg/dL (7-18); eGFR NON AFRICAN AMERICAN 15 mL/min (90-120)
[2018-07-01 00:02] VITALS: BP 114/48
[2018-07-01 06:08] VITALS: BP 148/83
[2018-07-01 12:18] VITALS: BP 88/35
[2018-07-01 18:00] VITALS: BP 108/36
[2018-07-02] VITALS: BP 97/47
[2018-07-02 05:42] VITALS: BP 97/53
[2018-07-02 07:26] LABS: BASOPHILS 0.2 % (0-2); EOSINOPHILS 1.2 % (0-7); HEMATOCRIT 26.2 % (42.0-54.0); HEMOGLOBIN 8.1 g/dL (13.5-17.5); IMMATURE GRANULOCYTES 0.3 % (0-5); LYMPHOCYTES 5.3 % (15-50); MCHC 30.9 g/dL (31.0-37.0); MCV 87.3 fL (80.0-100.0); MEAN PLATELET VOLUME 11.2 fL (7.4-10.4); MONOCYTES 6.2 % (2-11); NEUTROPHILS 86.8 % (40-80); RDW 16.7 % (11.5-14.5); WBC 11.5 10x3/uL (4.8-10.8)
[2018-07-02 07:27] LABS: PLATELET COUNT 79 10x3/uL (130-400)
[2018-07-02 07:39] LABS: CALCIUM 7.9 mg/dL (8.5-10.1); CARBON DIOXIDE 24.8 mmol/L (21.0-32.0); POTASSIUM - SERUM 3.8 mmol/L (3.5-5.1)
[2018-07-02 07:40] LABS: CREATININE - SERUM 3.1 mg/dL (0.6-1.3)
[2018-07-02 10:32] VITALS: Ht 177.8 cm; Wt 103.0 kg
[2018-07-02 12:59] VITALS: BP 98/41
[2018-07-02 17:48] VITALS: BP 101/34
[2018-07-02 23:51] VITALS: BP 94/27
[2018-07-03 05:02] VITALS: BP 87/29
[2018-07-03 06:29] LABS: BASOPHILS 0.2 % (0-2); EOSINOPHILS 3.5 % (0-7); HEMATOCRIT 28.1 % (42.0-54.0); HEMOGLOBIN 8.2 g/dL (13.5-17.5); IMMATURE GRANULOCYTES 0.2 % (0-5); LYMPHOCYTES 9.9 % (15-50); MCH 25.9 pg (26.0-34.0); MCHC 29.2 g/dL (31.0-37.0); MCV 88.6 fL (80.0-100.0); MEAN PLATELET VOLUME 11.5 fL (7.4-10.4); MONOCYTES 7.2 % (2-11); RBC 3.17 10x6/uL (4.20-6.10); RDW 16.8 % (11.5-14.5); WBC 9.5 10x3/uL (4.8-10.8)
[2018-07-03 06:41] LABS: PLATELET COUNT 122 10x3/uL (130-400)
[2018-07-03 06:44] LABS: ANION GAP 13.5 mmol/L (8-16); CALCIUM 7.8 mg/dL (8.5-10.1); CARBON DIOXIDE 26.2 mmol/L (21.0-32.0); CREATININE - SERUM 3.6 mg/dL (0.6-1.3); POTASSIUM - SERUM 3.7 mmol/L (3.5-5.1)
[2018-07-03 12:19] VITALS: BP 109/29
[2018-07-03 18:00] VITALS: BP 89/42
[2018-07-03 18:29] VITALS: BP 104/37
[2018-07-04] VITALS: BP 103/37
[2018-07-04 05:50] VITALS: BP 91/44
[2018-07-04 12:27] VITALS: BP 131/27
[2018-07-04 18:00] VITALS: BP 124/36
[2018-07-04 18:07] VITALS: BP 124/36
[2018-07-04 23:45] VITALS: BP 132/38
[2018-07-05 06:10] VITALS: BP 124/74
[2018-07-05 12:23] VITALS: BP 111/42
[2018-07-05 15:42] LABS: BASOPHILS 0.3 % (0-2); EOSINOPHILS 1.7 % (0-7); HEMOGLOBIN 10.1 g/dL (13.5-17.5); IMMATURE GRANULOCYTES 0.4 % (0-5); LYMPHOCYTES 8.2 % (15-50); MCH 26.8 pg (26.0-34.0); MCHC 30.6 g/dL (31.0-37.0); MCV 87.5 fL (80.0-100.0); MEAN PLATELET VOLUME 11.6 fL (7.4-10.4); NEUTROPHILS 80.4 % (40-80); PLATELET COUNT 130 10x3/uL (130-400); RBC 3.77 10x6/uL (4.20-6.10); WBC 7.2 10x3/uL (4.8-10.8)
[2018-07-05 15:54] LABS: ANION GAP 14.8 mmol/L (8-16); CALCIUM 7.3 mg/dL (8.5-10.1); CARBON DIOXIDE 25.5 mmol/L (21.0-32.0); CREATININE - SERUM 3.7 mg/dL (0.6-1.3); POTASSIUM - SERUM 3.3 mmol/L (3.5-5.1)
[2018-07-05 19:31] VITALS: BP 119/32
[2018-07-06 00:06] VITALS: BP 126/46
[2018-07-06 05:42] VITALS: BP 118/40
[2018-07-06 12:16] VITALS: BP 124/34
[2018-07-06 18:00] VITALS: BP 119/43
[2018-07-07 00:17] VITALS: BP 91/50
[2018-07-07 05:35] VITALS: BP 88/43
[2018-07-07 05:48] LABS: BASOPHILS 0.2 % (0-2); EOSINOPHILS 4.1 % (0-7); HEMATOCRIT 32.2 % (42.0-54.0); HEMOGLOBIN 9.8 g/dL (13.5-17.5); IMMATURE GRANULOCYTES 0.3 % (0-5); LYMPHOCYTES 11.5 % (15-50); MCH 26.8 pg (26.0-34.0); MCHC 30.4 g/dL (31.0-37.0); MEAN PLATELET VOLUME 11.6 fL (7.4-10.4); MONOCYTES 13.9 % (2-11); PLATELET COUNT 124 10x3/uL (130-400); RBC 3.66 10x6/uL (4.20-6.10); RDW 17.2 % (11.5-14.5); WBC 6.3 10x3/uL (4.8-10.8)
[2018-07-07 05:55] LABS: ANION GAP 13.6 mmol/L (8-16); CALCIUM 7.6 mg/dL (8.5-10.1); CARBON DIOXIDE 26.7 mmol/L (21.0-32.0); CREATININE - SERUM 3.8 mg/dL (0.6-1.3); POTASSIUM - SERUM 3.3 mmol/L (3.5-5.1)
[2018-07-07 12:53] VITALS: BP 100/42
[2018-07-08 00:26] VITALS: BP 114/56
[2018-07-08 06:13] VITALS: BP 107/37
[2018-07-08 13:29] VITALS: BP 122/44
[2018-07-09] VITALS (9 sets, daily range): BP systolic 101–146; BP diastolic 26–48
[2018-07-09 08:33] LABS: BASOPHILS 0.2 % (0-2); EOSINOPHILS 2.6 % (0-7); HEMATOCRIT 32.9 % (42.0-54.0); HEMOGLOBIN 9.8 g/dL (13.5-17.5); IMMATURE GRANULOCYTES 0.4 % (0-5); MCH 26.3 pg (26.0-34.0); MCHC 29.8 g/dL (31.0-37.0); MCV 88.4 fL (80.0-100.0); MEAN PLATELET VOLUME 11.7 fL (7.4-10.4); MONOCYTES 12.4 % (2-11); NEUTROPHILS 74.4 % (40-80); PLATELET COUNT 124 10x3/uL (130-400); RBC 3.72 10x6/uL (4.20-6.10); RDW 17.5 % (11.5-14.5); WBC 4.6 10x3/uL (4.8-10.8)
[2018-07-09 08:43] LABS: INR 1.06 (0.85-1.17); PROTIME 13.4 SECONDS (11.6-15.0)
[2018-07-09 08:50] LABS: ALBUMIN 2.2 g/dL (3.4-5.0); ANION GAP 15.2 mmol/L (8-16); BILIRUBIN - TOTAL 0.51 mg/dL (0.2-1.3); CALCIUM 7.7 mg/dL (8.5-10.1); CARBON DIOXIDE 26.3 mmol/L (21.0-32.0); CREATININE - SERUM 3.9 mg/dL (0.6-1.3); MAGNESIUM - SERUM 2.1 mg/dL (1.8-2.4); PHOSPHOROUS 5.1 mg/dL (2.5-4.9); POTASSIUM - SERUM 3.5 mmol/L (3.5-5.1); PROTEIN - SERUM 6.1 g/dL (6.4-8.2)
[2018-07-10 05:21] VITALS: BP 100/37
[2018-07-10 09:17] LABS: BASOPHILS 0.4 % (0-2); EOSINOPHILS 4.7 % (0-7); HEMATOCRIT 34.3 % (42.0-54.0); HEMOGLOBIN 10.2 g/dL (13.5-17.5); IMMATURE GRANULOCYTES 0.4 % (0-5); LYMPHOCYTES 12.3 % (15-50); MCH 26.2 pg (26.0-34.0); MCHC 29.7 g/dL (31.0-37.0); MCV 87.9 fL (80.0-100.0); MEAN PLATELET VOLUME 10.9 fL (7.4-10.4); MONOCYTES 11.5 % (2-11); NEUTROPHILS 70.7 % (40-80); PLATELET COUNT 125 10x3/uL (130-400); RDW 17.5 % (11.5-14.5); WBC 5.1 10x3/uL (4.8-10.8)
[2018-07-10 09:45] LABS: ANION GAP 17.3 mmol/L (8-16); CALCIUM 7.9 mg/dL (8.5-10.1); CARBON DIOXIDE 23.6 mmol/L (21.0-32.0); CREATININE - SERUM 4.2 mg/dL (0.6-1.3); POTASSIUM - SERUM 3.9 mmol/L (3.5-5.1)
[2018-07-10 12:33] VITALS: BP 142/56
[2018-07-10 17:43] VITALS: BP 94/68
[2018-07-11 00:26] VITALS: BP 152/76
[2018-07-11 05:43] VITALS: BP 152/57
[2018-07-11 12:20] VITALS: BP 113/45
[2018-07-11 19:33] VITALS: BP 150/89
[2018-07-11 19:43] VITALS: BP 150/89
[2018-07-12 00:27] VITALS: BP 147/39
[2018-07-12 05:25] VITALS: BP 148/73
[2018-07-12 06:59] LABS: BASOPHILS 0.5 % (0-2); HEMATOCRIT 31.3 % (42.0-54.0); HEMOGLOBIN 9.5 g/dL (13.5-17.5); IMMATURE GRANULOCYTES 0.5 % (0-5); LYMPHOCYTES 11.5 % (15-50); MCH 26.3 pg (26.0-34.0); MCHC 30.4 g/dL (31.0-37.0); MCV 86.7 fL (80.0-100.0); MEAN PLATELET VOLUME 11.6 fL (7.4-10.4); MONOCYTES 12.3 % (2-11); NEUTROPHILS 72.2 % (40-80); PLATELET COUNT 123 10x3/uL (130-400); RBC 3.61 10x6/uL (4.20-6.10); RDW 17.4 % (11.5-14.5); WBC 6.4 10x3/uL (4.8-10.8)
[2018-07-12 07:25] LABS: ANION GAP 17.2 mmol/L (8-16); CALCIUM 7.5 mg/dL (8.5-10.1); CARBON DIOXIDE 24.4 mmol/L (21.0-32.0); CREATININE - SERUM 4.1 mg/dL (0.6-1.3); POTASSIUM - SERUM 3.6 mmol/L (3.5-5.1)
[2018-07-12 12:03] VITALS: BP 121/79
[2018-07-12 18:00] VITALS: BP 142/40
[2018-07-13 00:14] VITALS: BP 104/42
[2018-07-13 05:00] VITALS: BP 110/35
[2018-07-13 12:00] VITALS: BP 106/43
[2018-07-13 18:00] VITALS: BP 93/44
[2018-07-14 00:01] VITALS: BP 122/65
[2018-07-14 05:44] VITALS: BP 118/38
[2018-07-14 06:53] LABS: BASOPHILS 0.5 % (0-2); EOSINOPHILS 2.3 % (0-7); HEMOGLOBIN 9.7 g/dL (13.5-17.5); IMMATURE GRANULOCYTES 0.4 % (0-5); LYMPHOCYTES 6.8 % (15-50); MCH 25.7 pg (26.0-34.0); MCHC 29.4 g/dL (31.0-37.0); MCV 87.5 fL (80.0-100.0); MEAN PLATELET VOLUME 11.1 fL (7.4-10.4); MONOCYTES 9.6 % (2-11); NEUTROPHILS 80.4 % (40-80); RBC 3.77 10x6/uL (4.20-6.10); RDW 17.6 % (11.5-14.5); WBC 7.5 10x3/uL (4.8-10.8)
[2018-07-14 06:56] LABS: PLATELET COUNT 153 10x3/uL (130-400)
[2018-07-14 07:02] LABS: ANION GAP 13.5 mmol/L (8-16); CALCIUM 7.8 mg/dL (8.5-10.1); CARBON DIOXIDE 26.4 mmol/L (21.0-32.0); CREATININE - SERUM 4.1 mg/dL (0.6-1.3); POTASSIUM - SERUM 3.9 mmol/L (3.5-5.1)
[2018-07-14] MEDS ORDERED: CORTISPORIN EY7.5 ML EACH EYE (09:06)
== END 2018-07-14 16:38 | disposition home health service (06) | DRG 91 ==
LOC: D.REHAB 11:25
PROVIDERS: Emergency Medicine; Surgery
PROC: 5A1D70Z Performance of Urinary Filtration, Intermittent, Less than 6 Hours Per Day (ICD-10-PCS; principal; 2018-06-30)
DX: G72.89 Other specified myopathies (principal); J96.02 Acute respiratory failure with hypercapnia; J96.01 Acute respiratory failure with hypoxia; N18.6 End stage renal disease; I13.2 Hypertensive heart and chronic kidney disease with heart failure and with stage 5 chronic kidney disease, or end stage renal disease; I99.8 Other disorder of circulatory system; E11.22 Type 2 diabetes mellitus with diabetic chronic kidney disease; I50.9 Heart failure, unspecified; Z99.2 Dependence on renal dialysis; Z89.029 Acquired absence of unspecified finger(s); Z89.512 Acquired absence of left leg below knee; Z89.511 Acquired absence of right leg below knee; J44.9 Chronic obstructive pulmonary disease, unspecified; I73.9 Peripheral vascular disease, unspecified; I25.10 Atherosclerotic heart disease of native coronary artery without angina pectoris; T82.7XXD Infection and inflammatory reaction due to other cardiac and vascular devices, implants and grafts, subsequent encounter; E21.3 Hyperparathyroidism, unspecified; D63.1 Anemia in chronic kidney disease; K59.00 Constipation, unspecified; I95.9 Hypotension, unspecified; E11.65 Type 2 diabetes mellitus with hyperglycemia